=== PATIENT | male | born 1930 | race Caucasian/White ===

== ENCOUNTER 2016-07-14 15:14 | Inpatient (IN) | payer MEDICARE, OTHER ==
[~2016-07-14] VITALS: Ht 170.2 cm; Wt 92.6 kg
[~2016-07-14 15:14] MED LIST: ASPI81TA21 PO; CALC667C PO; FLM4 PO; INSU100I2 SC; INSU1INJ23 SC; LPT10 PO; WARF-246 PO
--- NOTE | 2016-07-14 16:49 | DIAGNOSTIC IMAGING REPORT ---
CHEST ONE VIEW PORTABLE CLINICAL HISTORY: Weakness COMPARISON STUDY: Chest radiograph August 01, 2014. FINDINGS: Several vascular stents are noted. There is no pneumothorax. Small left and sfwqt-er-tughvmri right pleural effusions are present. There is pulmonary vascular congestion. Mild left basilar opacity is present. Mild left midlung opacity is also present. IMPRESSION: 1. Small to moderate right and small left pleural effusions. 2. Pulmonary vascular congestion. 3. Left mid and lower lung opacities which could reflect an infectious process, atelectasis or asymmetric pulmonary edema. Radiographic follow up is recommended. Electronically signed by: Davide Fernandez M.D. 07/14/2016 4:48 PM Dictated Date/Time: 07/14/2016 4:46 PM
[2016-07-14 16:56] LABS: BASO % 0.1 %; BASO ABS # 0.01 K/uL (0-0.2); COMPLETE YES; EOS % 0.1 %; HEMATOCRIT 41.2 % (42-52); IG% 0.2 %; LYMPH % 6.2 %; MEAN CELL VOLUME 98.1 fL (80-100); MEAN CORPUSCULAR HEMOGLOBIN 33.6 pg (25-34); MEAN CORPUSCULAR HGB CONC 34.2 g/dl (32-36); MEAN PLATELET VOLUME 10.3 fL (7.4-10.4); MONO % 3.4 %; PLATELET COUNT 163 K/uL (130-400); WHITE BLOOD COUNT 16.08 K/uL (4.8-10.8)
[2016-07-14 17:06] LABS: INR 1.8 (0.9-1.1); PARTIAL THROMBOPLASTIN RATIO 1.3; PROTHROMBIN TIME (PATIENT) 19.7 SECONDS (9.0-12.0)
[2016-07-14 17:33] LABS: URINE APPEARANCE CLEAR (CLEAR); URINE BILIRUBIN NEG (NEG); URINE COLOR YELLOW; URINE NITRITE NEG (NEG); URINE PH 5.5 (4.5-7.5); URINE SPECIFIC GRAVITY 1.018 (1.000-1.030); UROBILINOGEN NEG (NEG)
[2016-07-14 17:36] LABS: MANUAL MICROSCOPIC REQUIRED? NO; REVIEW REQ? YES
[2016-07-14 17:49] LABS: BUN/CREATININE RATIO 11.2 (10-20); MAGNESIUM 2.8 mg/dl (1.8-2.4); POTASSIUM 4.5 mmol/L (3.5-5.1); THYROID STIMULATING HORMONE 0.017 uIu/ml (0.300-4.500)
[2016-07-14 17:50] LABS: CREATININE 5.3 mg/dl (0.60-1.40)
[2016-07-14] MEDS ORDERED: LEVAQUIN 750MG / 150ML D5W IV STA (18:08)
[2016-07-14] MEDS ORDERED: INSU100I SC ×3 (18:43)
[2016-07-14] MEDS ORDERED: HEPARIN SOD 5000 UNIT/0.5 ML CARP SQ SCH (18:45)
[2016-07-14] MEDS ORDERED: ONDANSETRON INJ 2 MG/ML 2 ML VIAL IV PRN (18:45)
[2016-07-14] MEDS ORDERED: SODIUM CHLORIDE 0.9% 1000ML 1,000 ML IV SCH (18:45)
[2016-07-14] MEDS ORDERED: ACETAMINOPHEN 325 MG TAB PO PRN (18:45)
[2016-07-14] MEDS ORDERED: ALBUTEROL 0.083% NEBU SOLN 3 ML VIAL INH PRN (19:00)
--- NOTE | 2016-07-14 19:00 | Progress Note ---
Progress Note Date of Service Jul 14, 2016. Progress Note Attending Addendum: The patient was seen and examined in ER Flu like symptoms for the last 3 days Tiredness ,cough with increase SOB No fever ,chills or rigors O/E Afebrile Hemodynamically stable Chest-crackles left base Heart -regular ,no murmur appreciated Abdomen-benign Extremities-trace edema bilaterally Labs and Imaging studies were reviewed Has Left lower lobe pneumonia with increase WCC No Hypotension Levaquin,Fluid,Nebs Agree with the Assessment and Plan. DR Minesh Cervantes
--- NOTE | 2016-07-14 19:15 | History and Physical ---
History & Physical Date & Time of Service: Jul 14, 2016 at 18:47 Chief Complaint: Cold,Flu Primary Care Physician: Karlos Burris M.D. (MEDICAL) History of Present Illness Source: patient This is an 86 y/o male with PMHx of ESRD on HD, Insulin-dependent DM 2, Afib on Coumadin, HTN, Dyslipidemia and other problems as outlined below who presents to the ED c/o flu-like sxs. Pt reports that 2 days ago he developed fatigue, chills, muscle aches and congestion. He has been taking OTC decongestants at home with minimal relief. Pt has ESRD on HD MWF. He currently lives at home with his partner. Pt denies fevers, chest pain, SOB, wheezing, abd pain, N/V, bowel or bladder issues, LE edema ,calf pain, lightheadedness/dizziness. In the ED, vitals are stable. Pt is afebrile with leukocytosis >16k. INR 1.8. CXR + Left mid and lower lobe pneumonia. Pt is stable and will be admitted for further evaluation and treatment. Past Medical/Surgical History Medical Problems: (1) Afib Status: Chronic (2) BPH (benign prostatic hyperplasia) Status: Chronic (3) Diabetes mellitus, type II Status: Chronic (4) Dyslipidemia Status: Chronic (5) ESRD (end stage renal disease) Status: Chronic (6) Hypertension Status: Chronic (7) Inguinal hernia Status: Chronic Surgical Problems: (1) H/O cataract removal with insertion of prosthetic lens Status: Resolved (2) S/P lumbar spinal fusion Status: Resolved Family History Diabetes mellitus Hypertension Social History Smoking Status: Former Smoker (20 pack year history; quit 1977) Alcohol Use: none Drug Use: none Marital Status: in relationship ([facility]) Housing status: lives with significant other Occupational Status: retired Multi-Drug Resistant Organisms History of MDRO: No Allergies Coded Allergies: Hydralazine (Verified Allergy, Unknown, DOESN'T FEEL WELL, 07/14/16) Sulfa Antibiotics (Verified Allergy, Unknown, `, 07/14/16) Benazepril (Verified Adverse Reaction, Unknown, DIZZINESS, 07/14/16) Home Medications Scheduled Aspirin Enteric Coated (Ecotrin Or Generic), 81 MG PO DAILY Atorvastatin (Atorvastatin Calcium), 10 MG PO QPM Calcium Acetate (Phosphate Bin (Phoslo 667 Mg), 667 MG PO TIDM Insulin Isophane (Human) (Humulin N Kwikpen), 15 UNITS SC QAM Insulin Lispro (Human) (Humalog), 4 UNITS SC QDB Insulin Lispro (Human) (Humalog), 4 UNITS SC QDL Insulin Lispro (Human) (Humalog), 5 UNITS SC QDD Warfarin Sodium (Warfarin Sodium), 2.5 MG PO DAILY Review of Systems Constitutional: + chills, + fatigue, + weakness, No fever, No sweats Eyes: No worsening of vision ENT: + nasal symptoms, No hearing loss, No sore throat Respiratory: + sputum (mild), No cough, No shortness of breath Cardiovascular: No chest pain, No claudication, No edema, No palpitations Abdomen: No constipation, No diarrhea, No nausea, No pain, No vomiting Musculoskeletal: No calf pain, No swelling Genitourinary - Male: No dysuria Neurologic: No weakness Psychiatric: No depression symptoms Endocrine: + fatigue Hematologic / Lymphatic: No abnormal bleeding/bruising Integumentary: No new/changing skin lesions Physical Exam Vital Signs Date Time Temp Pulse Resp B/P Pulse Ox O2 Delivery O2 Flow Rate FiO2 07/14/16 18:04 80 07/14/16 17:39 90 18 166/61 95 Room Air 07/14/16 16:48 99 Room Air 07/14/16 15:33 36.9 90 20 184/64 99 Room Air General Appearance: WD/WN, no apparent distress, + pertinent finding (Pt is sitting on edge of bed with family at bedside ) Head: normocephalic, atraumatic Eyes: normal inspection ENT: hearing grossly normal Neck: supple Respiratory/Chest: chest non-tender, no respiratory distress, no accessory muscle use, + pertinent finding (crackles to left base; no wheezing noted) Cardiovascular: regular rate, rhythm, + systolic murmur (III/) Abdomen/GI: normal bowel sounds, non tender, soft Back: normal inspection Extremities/Musculoskelatal: normal inspection, no calf tenderness, + pedal edema (trace bilat) Neurologic/Psych: alert, normal mood/affect, oriented x 3 Skin: normal color, warm/dry Diagnostics Laboratory Results Results Past 24 Hours Test 07/14/16 16:35 07/14/16 16:54 07/14/16 17:00 Range/Units White Blood Count 16.08 4.8-10.8 K/uL Red Blood Count 4.20 4.7-6.1 M/uL Hemoglobin 14.1 14.0-18.0 g/dL Hematocrit 41.2 42-52 % Mean Corpuscular Volume 98.1 80-100 fL Mean Corpuscular Hemoglobin 33.6 25-34 pg Mean Corpuscular Hemoglobin Concent 34.2 32-36 g/dl Platelet Count 163 130-400 K/uL Mean Platelet Volume 10.3 7.4-10.4 fL Neutrophils (%) (Auto) 90.0 % Lymphocytes (%) (Auto) 6.2 % Monocytes (%) (Auto) 3.4 % Eosinophils (%) (Auto) 0.1 % Basophils (%) (Auto) 0.1 % Neutrophils # (Auto) 14.47 1.4-6.5 K/uL Lymphocytes # (Auto) 1.00 1.2-3.4 K/uL Monocytes # (Auto) 0.55 0.11-0.59 K/uL Eosinophils # (Auto) 0.01 0-0.5 K/uL Basophils # (Auto) 0.01 0-0.2 K/uL RDW Standard Deviation 47.1 36.4-46.3 fL RDW Coefficient of Variation 13.2 11.5-14.5 % Immature Granulocyte % (Auto) 0.2 % Immature Granulocyte # (Auto) 0.04 0.00-0.02 K/uL Prothrombin Time 19.7 9.0-12.0 SECONDS Prothromb Time International Ratio 1.8 0.9-1.1 Activated Partial Thromboplast Time 33.1 21.0-31.0 SECONDS Partial Thromboplastin Ratio 1.3 Sodium Level 135 136-145 mmol/L Potassium Level 4.5 3.5-5.1 mmol/L Chloride Level 95 98-107 mmol/L Carbon Dioxide Level 29 21-32 mmol/L Anion Gap 11.0 3-11 mmol/L Blood Urea Nitrogen 59 7-18 mg/dl Creatinine 5.30 0.60-1.40 mg/dl Est Creatinine Clear Calc Drug Dose 10.6 ml/min Estimated GFR () 10.3 Estimated GFR (Non- 8.9 BUN/Creatinine Ratio 11.2 10-20 Random Glucose 208 70-99 mg/dl Calcium Level 9.0 8.5-10.1 mg/dl Magnesium Level 2.8 1.8-2.4 mg/dl Total Bilirubin 0.6 0.2-1 mg/dl Direct Bilirubin 0.2 0-0.2 mg/dl Aspartate Amino Transf (AST/SGOT) 13 15-37 U/L Alanine Aminotransferase (ALT/SGPT) 20 12-78 U/L Alkaline Phosphatase 54 45-117 U/L Total Protein 8.1 6.4-8.2 gm/dl Albumin 3.7 3.4-5.0 gm/dl Lipase 152 73-393 U/L Thyroid Stimulating Hormone (TSH) 0.017 0.300-4.500 uIu/ml Influenza Type A Antigen Neg for Influ A NEG Influenza Type B Antigen Neg for Influ B NEG Urine Color YELLOW Urine Appearance CLEAR CLEAR Urine pH 5.5 4.5-7.5 Urine Specific [place] 1.018 1.000-1.030 Urine Protein 1+ NEG Urine Glucose (UA) 2+ NEG Urine Ketones NEG NEG Urine Occult Blood 1+ NEG Urine Nitrite NEG NEG Urine Bilirubin NEG NEG Urine Urobilinogen NEG NEG Urine Leukocyte Esterase NEG NEG Urine WBC (Auto) 1-5 0-5 /hpf Urine RBC (Auto) 5-10 0-4 /hpf Urine Hyaline Casts (Auto) 1-5 0-5 /lpf Urine Epithelial Cells (Auto) 10-20 0-5 /lpf Urine Bacteria (Auto) NEG NEG Urine Yeast (Auto) NONE PRSENT Microbiology Results 07/14/16 Blood Culture, Received Pending 07/14/16 Blood Culture, Received Pending Diagnostic Radiology CXR IMPRESSION: 1. Small to moderate right and small left pleural effusions. 2. Pulmonary vascular congestion. 3. Left mid and lower lung opacities which could reflect an infectious process, atelectasis or asymmetric pulmonary edema. Radiographic follow up is recommended. EKG EKG: Aflutter with variable AV block; when compared with EKG from 07/14/14 Aflutter has replaced Afib and T wave inversion is no longer evident in anterolateral leads Impression Assessment and Plan LEFT-SIDED PNEUMONIA pt presents with flu-like sxs -admit to med/surg -pt is afebrile with leukocytosis >16k; saturating well on room air -CXR + left mid and lower lobe pneumonia with small to mod R and small L pleural effusion -sputum and blood cx-pending -start duonebs and Levaquin -monitor ESRD ON HD -HD MWF -consult nephro, Balta[facility] Cartwright for dialysis tmrw INSULIN-DEPENDENT DM 2 -A1C 7.0 -diabetic diet -ISS while in hospital -monitor BSG AC HS ATRIAL FIBRILLATION -EKG: rate controlled aflutter -INR subtherapeutic at 1.8; cont to monitor daily -cont Coumadin -monitor HTN -BP stable -not on antihypertensives at home -monitor DYSLIPIDEMIA -cont statin DVT PROPHYLAXIS -Coumadin CODE STATUS -DNR per discussion with patient upon admission DISPO Pt seen in collaboration with Dr. Cervantes. Please see his addendum for further details. Thanks! Attending Addendum: The patient was seen and examined in ER Flu like symptoms for the last 3 days Tiredness ,cough with increase SOB No fever ,chills or rigors O/E Afebrile Hemodynamically stable Chest-crackles left base Heart -regular ,no murmur appreciated Abdomen-benign Extremities-trace edema bilaterally Labs and Imaging studies were reviewed Has Left lower lobe pneumonia with increase WCC No Hypotension Levaquin,Fluid,Nebs Agree with the Assessment and Plan. DR Minesh Cervantes VTE Prophylaxis VTE Risk Assessment Done? Y/N: Yes Risk Level: Moderate
[2016-07-14 20:25] VITALS: BP 179/64; PULSE 79; TEMP 37.2; O2SAT 95; Ht 170.2 cm; Wt 92.6 kg
[2016-07-14] MEDS ORDERED: ATORVASTATIN 10 MG TAB PO SCH (21:00)
[2016-07-14] MEDS: ALBUT/IPRATROP 3MG/0.5MG NEB 3 ML VIAL INH SCH (21:13)
[2016-07-14 21:15] VITALS: PULSE 79; O2SAT 92
[2016-07-14] MEDS ORDERED: GLUCOSE 10 TABS/TUBE PO PRN (21:45)
[2016-07-14] MEDS ORDERED: GLUCAGON FOR INJ 1 MG VIAL SQ PRN (21:45)
[2016-07-14] MEDS ORDERED: GLUCOSE 40% GEL 15 GM TUBE PO PRN (21:45)
[2016-07-14] MEDS ORDERED: DEXTROSE 50% 50 ML SYR IV PRN (21:45)
--- NOTE | 2016-07-14 22:42 | EMERGENCY ROOM VISIT NOTE ---
History Report prepared by Radha: Tonya Brenner Under the Supervision of: Dr. Tera Obando M.D. First contact with patient: 16:05 Chief Complaint: FLU LIKE SX Stated Complaint: COLD,FLU History of Present Illness The patient is a 86 year old male who presents to the Emergency Room with complaints of worsening flu like symptoms beginning 3 days prior to arrival. The patient states that he feels very fatigue. He also notes chills, muscle aches and congestion with a small amount of sputum. The patient states that he is currently on dialysis. Pt denies LOC, headache, fevers, diaphoresis, visual changes, neck pain, chest pain, breathing difficulties, nausea, vomiting, abdominal pain, back pain, melena, hematochezia, urinary symptoms, numbness, weakness, lymphadenopathy, rash, or other complaints. 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 Review of Systems See HPI for pertinent positives and negatives. A total of ten systems were reviewed and were otherwise negative. Past Medical & Surgical Medical Problems: (1) Afib (2) BPH (benign prostatic hyperplasia) (3) Diabetes mellitus, type II (4) Dyslipidemia (5) ESRD (end stage renal disease) (6) Hypertension (7) Inguinal hernia Surgical Problems: (1) H/O cataract removal with insertion of prosthetic lens (2) S/P lumbar spinal fusion Family History Diabetes mellitus Hypertension Social History Smoking Status: Never Smoker Alcohol Use: none Marital Status: in relationship Housing Status: lives with significant other Occupation Status: retired Current/Historical Medications Scheduled Aspirin Enteric Coated (Ecotrin Or Generic), 81 MG PO DAILY Atorvastatin (Atorvastatin Calcium), 10 MG PO QPM Calcium Acetate (Phosphate Bin (Phoslo 667 Mg), 667 MG PO TIDM Insulin Isophane (Human) (Humulin N Kwikpen), 15 UNITS SC QAM Insulin Lispro (Human) (Humalog), 4 UNITS SC QDB Insulin Lispro (Human) (Humalog), 4 UNITS SC QDL Insulin Lispro (Human) (Humalog), 5 UNITS SC QDD Warfarin Sodium (Warfarin Sodium), 2.5 MG PO DAILY Allergies Coded Allergies: Hydralazine (Verified Allergy, Unknown, DOESN'T FEEL WELL, 07/14/16) Sulfa Antibiotics (Verified Allergy, Unknown, `, 07/14/16) Benazepril (Verified Adverse Reaction, Unknown, DIZZINESS, 07/14/16) Physical Exam Vital Signs Date Time Temp Pulse Resp B/P Pulse Ox O2 Delivery O2 Flow Rate FiO2 07/14/16 18:04 80 07/14/16 17:39 90 18 166/61 95 Room Air 07/14/16 16:48 99 Room Air 07/14/16 15:33 36.9 90 20 184/64 99 Room Air Physical Exam GENERAL: Awake, alert, tired appearing, in no distress HENT: Normocephalic, atraumatic. Oropharynx unremarkable. EYES: Normal conjunctiva. Sclera non-icteric. NECK: Supple. No nuchal rigidity. FROM. No JVD. RESPIRATORY: Clear to auscultation. CARDIAC: Regular rate, normal rhythm. Systolic ejection murmur. Extremities warm and well perfused. Pulses equal. ABDOMEN: Soft, non-distended. No tenderness to palpation. No rebound or guarding. No masses. RECTAL: Deferred. MUSCULOSKELETAL: Chest examination reveals no tenderness. The back is symmetrical on inspection without obvious abnormality. There is no CVA tenderness to palpation. No joint edema. Fistula present in upper right extremity. LOWER EXTREMITIES: Calves are equal size bilaterally and non-tender. No edema. No discoloration. NEURO: Normal sensorium. No sensory or motor deficits noted. SKIN: No rash or jaundice noted. Medical Decision & Procedures ER Provider Diagnostic Interpretation: X-ray: Per my interpretation, radiologist review. CHEST ONE VIEW PORTABLE CLINICAL HISTORY: Weakness COMPARISON STUDY: Chest radiograph August 01, 2014. FINDINGS: Several vascular stents are noted. There is no pneumothorax. Small left and ajsvl-ll-[id number] right pleural effusions are present. There is pulmonary vascular congestion. Mild left basilar opacity is present. Mild left midlung opacity is also present. IMPRESSION: 1. Small to moderate right and small left pleural effusions. 2. Pulmonary vascular congestion. 3. Left mid and lower lung opacities which could reflect an infectious process, atelectasis or asymmetric pulmonary edema. Radiographic follow up is recommended. Electronically signed by: Davide Fernandez M.D. 07/14/2016 4:48 PM Dictated Date/Time: 07/14/2016 4:46 PM Laboratory Results 07/14/16 16:35 Red Blood Count 4.20, Mean Corpuscular Volume 98.1, Mean Corpuscular Hemoglobin 33.6, Mean Corpuscular Hemoglobin Concent 34.2, Mean Platelet Volume 10.3, Neutrophils (%) (Auto) 90.0, Lymphocytes (%) (Auto) 6.2, Monocytes (%) (Auto) 3.4, Eosinophils (%) (Auto) 0.1, Basophils (%) (Auto) 0.1, Neutrophils # (Auto) 14.47, Lymphocytes # (Auto) 1.00, Monocytes # (Auto) 0.55, Eosinophils # (Auto) 0.01, Basophils # (Auto) 0.01 07/14/16 16:35 Test 07/14/16 16:35 07/14/16 16:54 07/14/16 17:00 White Blood Count 16.08 K/uL (4.8-10.8) Red Blood Count 4.20 M/uL (4.7-6.1) Hemoglobin 14.1 g/dL (14.0-18.0) Hematocrit 41.2 % (42-52) Mean Corpuscular Volume 98.1 fL (80-100) Mean Corpuscular Hemoglobin 33.6 pg (25-34) Mean Corpuscular Hemoglobin Concent 34.2 g/dl (32-36) Platelet Count 163 K/uL (130-400) Mean Platelet Volume 10.3 fL (7.4-10.4) Neutrophils (%) (Auto) 90.0 % Lymphocytes (%) (Auto) 6.2 % Monocytes (%) (Auto) 3.4 % Eosinophils (%) (Auto) 0.1 % Basophils (%) (Auto) 0.1 % Neutrophils # (Auto) 14.47 K/uL (1.4-6.5) Lymphocytes # (Auto) 1.00 K/uL (1.2-3.4) Monocytes # (Auto) 0.55 K/uL (0.11-0.59) Eosinophils # (Auto) 0.01 K/uL (0-0.5) Basophils # (Auto) 0.01 K/uL (0-0.2) RDW Standard Deviation 47.1 fL (36.4-46.3) RDW Coefficient of Variation 13.2 % (11.5-14.5) Immature Granulocyte % (Auto) 0.2 % Immature Granulocyte # (Auto) 0.04 K/uL (0.00-0.02) Prothrombin Time 19.7 SECONDS (9.0-12.0) Prothromb Time International Ratio 1.8 (0.9-1.1) Activated Partial Thromboplast Time 33.1 SECONDS (21.0-31.0) Partial Thromboplastin Ratio 1.3 Anion Gap 11.0 mmol/L (3-11) Est Creatinine Clear Calc Drug Dose 10.6 ml/min Estimated GFR () 10.3 Estimated GFR (Non- 8.9 BUN/Creatinine Ratio 11.2 (10-20) Calcium Level 9.0 mg/dl (8.5-10.1) Magnesium Level 2.8 mg/dl (1.8-2.4) Total Bilirubin 0.6 mg/dl (0.2-1) Direct Bilirubin 0.2 mg/dl (0-0.2) Aspartate Amino Transf (AST/SGOT) 13 U/L (15-37) Alanine Aminotransferase (ALT/SGPT) 20 U/L (12-78) Alkaline Phosphatase 54 U/L (45-117) Total Protein 8.1 gm/dl (6.4-8.2) Albumin 3.7 gm/dl (3.4-5.0) Lipase 152 U/L (73-393) Thyroid Stimulating Hormone (TSH) 0.017 uIu/ml (0.300-4.500) Influenza Type A Antigen Neg for Influ A (NEG) Influenza Type B Antigen Neg for Influ B (NEG) Urine Color YELLOW Urine Appearance CLEAR (CLEAR) Urine pH 5.5 (4.5-7.5) Urine Specific [place] 1.018 (1.000-1.030) Urine Protein 1+ (NEG) Urine Glucose (UA) 2+ (NEG) Urine Ketones NEG (NEG) Urine Occult Blood 1+ (NEG) Urine Nitrite NEG (NEG) Urine Bilirubin NEG (NEG) Urine Urobilinogen NEG (NEG) Urine Leukocyte Esterase NEG (NEG) Urine WBC (Auto) 1-5 /hpf (0-5) Urine RBC (Auto) 5-10 /hpf (0-4) Urine Hyaline Casts (Auto) 1-5 /lpf (0-5) Urine Epithelial Cells (Auto) 10-20 /lpf (0-5) Urine Bacteria (Auto) NEG (NEG) Urine Yeast (Auto) (NONE PRSENT) Laboratory results reviewed by me Medications Administered Medications (Trade) Dose Ordered Sig/Gypsy Route Start Time Stop Time Status Last Admin Dose Admin Levofloxacin (Levaquin / D5W) 750 mg NOW STAT IV 07/14/16 18:08 07/14/16 18:09 DC 07/14/16 18:12 750 MG ECG Indication: other (flu like symptoms) Rate (beats per minute): 85 Rhythm: atrial flutter (with variable block) Findings: Q waves (Anterior), no acute ischemic change ED Course 162: The patient was evaluated in room B8. A complete history and physical exam was performed. 1807: Levaquin / D5W 750 mg IV. 1810: I reevaluated the patient and discussed test results. He is worried about going home due to weakness. 1813: Discussed the patient's case with LETA Maher. The patient will be evaluated for further treatment and disposition. Medical Decision Triage Nursing notes reviewed. The patient's presentation and history were concerning for flu like symptoms. Etiologies such as pneumonia, influenza, viral syndrome, COPD, reactive airway disease, CHF, cardiac ischemia, pulmonary embolism, pneumothorax, musculoskeletal, infections, gastrointestinal, as well as others were entertained. The patient was evaluated. He was mildly ill but nontoxic. Chest x-ray performed was concerning for pneumonia. The patient has a leukocytosis of 16, 000 on CBC. INR was elevated at 1.8. Creatinine is elevated with his chronic renal insufficiency. Flu testing was negative. TSH was mildly low concerning for hyperthyroidism. The patient was treated with IV Levaquin. He has been generally weak and worsening. Family and patient are both very concerned about him going home. Consultation was made with internal medicine. The patient was evaluated in the Emergency Room for further treatment. ThE chart was completed utilizing [employer] Speech voice recognition software. Grammatical errors, random word insertions, pronoun errors, and incomplete sentences are an occasional consequence of this system due to software limitations, ambient noise, and hardware issues. Any formal questions or concerns about the content, text, or information contained within the body of this dictation should be directly addressed to the physician for clarification. Consults Time Called: 1811 Consulting Physician: LETA Maher Returned Call: 1813 Discussed the patient's case. The patient will be evaluated for further treatment and disposition. Impression Primary Impression: Pneumonia Additional Impression: Weakness Scribe Attestation The scribe's documentation has been prepared under my direction and personally reviewed by me in its entirety. I confirm that the note above accurately reflects all work, treatment, procedures, and medical decision making performed by me. Departure Information Dispostion Being Evaluated By Hospitalist Referrals Karlos Burris M.D. (MEDICAL) (PCP) Problem Qualifiers
[2016-07-14 23:00] VITALS: BP 160/66; PULSE 84; TEMP 36.8; O2SAT 93
[2016-07-14] MEDS: ATORVASTATIN 10 MG TAB PO SCH (23:06)
[2016-07-14] MEDS: INSULIN ASPART 100 UNITS/ML 3 ML PEN SC SCH (23:09)
[2016-07-15] VITALS (26 sets, daily range): BP systolic 129–189; BP diastolic 53–72; PULSE 20–103; TEMP 36.6–37.5; O2SAT 88–98
[2016-07-15] MEDS ORDERED: LEVOFLOXACIN CONSULT ACTIVE PRN (05:30)
[2016-07-15 06:42] LABS: HEMATOCRIT 39.5 % (42-52); MEAN CORPUSCULAR HGB CONC 33.7 g/dl (32-36); MEAN PLATELET VOLUME 10.3 fL (7.4-10.4); PLATELET COUNT 170 K/uL (130-400); RED BLOOD COUNT 4.03 M/uL (4.7-6.1)
[2016-07-15 06:53] LABS: INR 1.8 (0.9-1.1); PROTHROMBIN TIME (PATIENT) 20.2 SECONDS (9.0-12.0)
[2016-07-15 07:27] LABS: BUN/CREATININE RATIO 12.2 (10-20); CALCIUM 8.9 mg/dl (8.5-10.1); CREATININE 5.4 mg/dl (0.60-1.40); MAGNESIUM 2.7 mg/dl (1.8-2.4); POTASSIUM 3.9 mmol/L (3.5-5.1)
[2016-07-15] MEDS: ALBUT/IPRATROP 3MG/0.5MG NEB 3 ML VIAL INH SCH ×4 (07:36→20:29)
[2016-07-15] MEDS ORDERED: CALCIUM ACETATE 667MG GELCAP PO SCH (08:00)
[2016-07-15] MEDS: CALCIUM ACETATE 667MG GELCAP PO SCH ×3 (08:28→17:54)
[2016-07-15] MEDS: ASPIRIN 81 MG ECTAB PO SCH (08:29)
[2016-07-15] MEDS: INSULIN ASPART 100 UNITS/ML 3 ML PEN SC SCH ×4 (08:33→21:43)
[2016-07-15] MEDS ORDERED: ASPIRIN 81 MG ECTAB PO SCH (09:00)
[2016-07-15] MEDS ORDERED: WARFARIN SOD 5 MG TAB PO SCH (09:00)
[2016-07-15] MEDS ORDERED: HEPARIN SOD (PORCINE) 1000 UNIT/ML 10 ML VIAL IV SCH (09:30)
[2016-07-15] MEDS: HEPARIN SOD (PORCINE) 1000 UNIT/ML 10 ML VIAL IV SCH ×3 (09:30→11:30)
[2016-07-15] MEDS: WARFARIN SOD 2.5 MG TAB PO SCH (15:43)
--- NOTE | 2016-07-15 16:19 | Progress Note ---
Internal Med Progress Note Date of Service: Jul 15, 2016. Provider Documentation: SUBJECTIVE: The patient was seen and examined Complains of dry cough Otherwise feels better OBJECTIVE: Vital Signs-as noted below Exam: General-No distress Eyes-normal ENT-normal Neck-Supple Lungs-Coarse crackles mainly at the left base Heart-Regular.no murmur Abdomen-Benign,no masses,bowel sound present Extremities-No edema Neuro-AAOx3 Lab data as noted below. ASSESSMENT & PLAN: LEFT LOWER LOBE PNEUMONIA pt presents with flu-like symptoms for 3 days prior to admission no sepsis but WCC increased to 16K -CXR + left mid and lower lobe pneumonia with small to mod R and small L pleural effusion -started on IV Levaquin -sputum and blood cx-pending -nebs for cough INSULIN-DEPENDENT DM 2 -A1C 7.0 -diabetic diet -ISS while in hospital -monitor BSG AC HS -blood sugar is maintained ESRD ON HD -HD MWF -consult nephDr chow Mainali for dialysis tmrw -has had dialysis today -appreciate Nephrology input ATRIAL FIBRILLATION -EKG: rate controlled aflutter -INR subtherapeutic at 1.8; cont to monitor daily -cont Coumadin same dose HTN -BP stable -not on antihypertensives at home -running on the higher side DYSLIPIDEMIA -cont statin DVT PROPHYLAXIS -Coumadin CODE STATUS -DNR per discussion with patient upon admission DISPO Likely home in a day or two Vital Signs: Date Time Temp Pulse Resp B/P Pulse Ox O2 Delivery O2 Flow Rate FiO2 07/15/16 16:01 82 16 91 Room Air 07/15/16 15:13 36.6 96 20 189/62 94 Room Air 07/15/16 13:38 36.6 103 18 160/58 98 Room Air 07/15/16 13:15 36.8 20 136/71 07/15/16 13:00 76 129/62 07/15/16 12:45 73 133/61 07/15/16 12:30 73 145/59 07/15/16 12:15 71 133/60 07/15/16 12:00 75 141/64 07/15/16 11:45 72 138/62 07/15/16 11:30 71 146/68 07/15/16 11:15 74 141/72 07/15/16 11:00 72 140/63 07/15/16 10:45 68 141/66 07/15/16 10:30 77 138/68 07/15/16 10:15 76 142/67 07/15/16 10:00 74 137/61 07/15/16 09:45 74 141/62 07/15/16 09:40 92 Room Air 07/15/16 09:30 37.5 76 142/68 07/15/16 07:56 36.7 88 20 169/70 92 Room Air 07/15/16 07:36 78 16 92 Room Air 07/15/16 07:10 Room Air 07/15/16 00:00 Room Air 07/14/16 23:00 36.8 84 20 160/66 93 Room Air 07/14/16 21:15 79 16 92 Room Air 07/14/16 20:25 37.2 79 18 179/64 95 Room Air 07/14/16 20:13 78 18 141/53 94 Room Air 07/14/16 18:04 80 07/14/16 17:39 90 18 166/61 95 Room Air 07/14/16 16:48 99 Room Air Lab Results: Results Past 24 Hours Test 07/14/16 16:35 07/14/16 16:54 07/14/16 17:00 07/14/16 21:01 Range/Units White Blood Count 16.08 4.8-10.8 K/uL Red Blood Count 4.20 4.7-6.1 M/uL Hemoglobin 14.1 14.0-18.0 g/dL Hematocrit 41.2 42-52 % Mean Corpuscular Volume 98.1 80-100 fL Mean Corpuscular Hemoglobin 33.6 25-34 pg Mean Corpuscular Hemoglobin Concent 34.2 32-36 g/dl Platelet Count 163 130-400 K/uL Mean Platelet Volume 10.3 7.4-10.4 fL Neutrophils (%) (Auto) 90.0 % Lymphocytes (%) (Auto) 6.2 % Monocytes (%) (Auto) 3.4 % Eosinophils (%) (Auto) 0.1 % Basophils (%) (Auto) 0.1 % Neutrophils # (Auto) 14.47 1.4-6.5 K/uL Lymphocytes # (Auto) 1.00 1.2-3.4 K/uL Monocytes # (Auto) 0.55 0.11-0.59 K/uL Eosinophils # (Auto) 0.01 0-0.5 K/uL Basophils # (Auto) 0.01 0-0.2 K/uL RDW Standard Deviation 47.1 36.4-46.3 fL RDW Coefficient of Variation 13.2 11.5-14.5 % Immature Granulocyte % (Auto) 0.2 % Immature Granulocyte # (Auto) 0.04 0.00-0.02 K/uL Prothrombin Time 19.7 9.0-12.0 SECONDS Prothromb Time International Ratio 1.8 0.9-1.1 Activated Partial Thromboplast Time 33.1 21.0-31.0 SECONDS Partial Thromboplastin Ratio 1.3 Sodium Level 135 136-145 mmol/L Potassium Level 4.5 3.5-5.1 mmol/L Chloride Level 95 98-107 mmol/L Carbon Dioxide Level 29 21-32 mmol/L Anion Gap 11.0 3-11 mmol/L Blood Urea Nitrogen 59 7-18 mg/dl Creatinine 5.30 0.60-1.40 mg/dl Est Creatinine Clear Calc Drug Dose 10.6 ml/min Estimated GFR () 10.3 Estimated GFR (Non- 8.9 BUN/Creatinine Ratio 11.2 10-20 Random Glucose 208 70-99 mg/dl Calcium Level 9.0 8.5-10.1 mg/dl Magnesium Level 2.8 1.8-2.4 mg/dl Total Bilirubin 0.6 0.2-1 mg/dl Direct Bilirubin 0.2 0-0.2 mg/dl Aspartate Amino Transf (AST/SGOT) 13 15-37 U/L Alanine Aminotransferase (ALT/SGPT) 20 12-78 U/L Alkaline Phosphatase 54 45-117 U/L Total Protein 8.1 6.4-8.2 gm/dl Albumin 3.7 3.4-5.0 gm/dl Lipase 152 73-393 U/L Thyroid Stimulating Hormone (TSH) 0.017 0.300-4.500 uIu/ml Influenza Type A Antigen Neg for Influ A NEG Influenza Type B Antigen Neg for Influ B NEG Urine Color YELLOW Urine Appearance CLEAR CLEAR Urine pH 5.5 4.5-7.5 Urine Specific [place] 1.018 1.000-1.030 Urine Protein 1+ NEG Urine Glucose (UA) 2+ NEG Urine Ketones NEG NEG Urine Occult Blood 1+ NEG Urine Nitrite NEG NEG Urine Bilirubin NEG NEG Urine Urobilinogen NEG NEG Urine Leukocyte Esterase NEG NEG Urine WBC (Auto) 1-5 0-5 /hpf Urine RBC (Auto) 5-10 0-4 /hpf Urine Hyaline Casts (Auto) 1-5 0-5 /lpf Urine Epithelial Cells (Auto) 10-20 0-5 /lpf Urine Bacteria (Auto) NEG NEG Urine Yeast (Auto) NONE PRSENT Bedside Glucose 204 70-99 mg/dl Test 07/15/16 06:00 07/15/16 08:13 07/15/16 10:04 07/15/16 13:19 Range/Units White Blood Count 14.60 4.8-10.8 K/uL Red Blood Count 4.03 4.7-6.1 M/uL Hemoglobin 13.3 14.0-18.0 g/dL Hematocrit 39.5 42-52 % Mean Corpuscular Volume 98.0 80-100 fL Mean Corpuscular Hemoglobin 33.0 25-34 pg Mean Corpuscular Hemoglobin Concent 33.7 32-36 g/dl RDW Standard Deviation 47.9 36.4-46.3 fL RDW Coefficient of Variation 13.3 11.5-14.5 % Platelet Count 170 130-400 K/uL Mean Platelet Volume 10.3 7.4-10.4 fL Prothrombin Time 20.2 9.0-12.0 SECONDS Prothromb Time International Ratio 1.8 0.9-1.1 Sodium Level 132 136-145 mmol/L Potassium Level 3.9 3.5-5.1 mmol/L Chloride Level 93 98-107 mmol/L Carbon Dioxide Level 29 21-32 mmol/L Anion Gap 10.0 3-11 mmol/L Blood Urea Nitrogen 67 7-18 mg/dl Creatinine 5.40 0.60-1.40 mg/dl Est Creatinine Clear Calc Drug Dose 10.4 ml/min Estimated GFR () 10.1 Estimated GFR (Non- 8.7 BUN/Creatinine Ratio 12.2 10-20 Random Glucose 172 70-99 mg/dl Calcium Level 8.9 8.5-10.1 mg/dl Magnesium Level 2.7 1.8-2.4 mg/dl Bedside Glucose 170 155 70-99 mg/dl Microbiology Results 07/14/16 Blood Culture, Received Pending 07/14/16 Blood Culture, Received Pending
[2016-07-15 17:01] LABS: HEPATITIS B AB NEG
[2016-07-15] MEDS ORDERED: MAGNESIUM HYDROXIDE SUSP 30 ML UDC PO ONE (18:15)
--- NOTE | 2016-07-15 19:58 | Nephrology Consultation ---
Nephrology Consultation Date of Consultation: Jul 15, 2016. Attending Physician: Dr Cervantes Requesting Physician: Dr Marcelo Reason for Consultation: ESRD History of Present Illness 86 year old male w/ ESRD on MWF HD, a fib on coumadin, DM, HTN admitted for tx of LLL pna after presenting with flu like sx of chills, chest/sinus congestion. Not hypoxic, febrile, or hypotensive. His WBC was 16K; K 4.5. Blood cultures are pending. He is being treated w/ duonebs and levaquin. At my orders, he received routine dialysis today and had an uneventful tx w/ 3L UF. Past Medical/Surgical History Medical Problems: (1) Pneumonia Status: Acute (2) Weakness Status: Acute -as per HPI -HTN -remote 20 pk yr hx tobacco abuse -s/p lumbar- fusion Family History Diabetes mellitus Hypertension Social History Smoking Status: Never Smoker Alcohol Use: none Drug Use: none Marital Status: in relationship Housing Status: lives with significant other Occupation Status: retired Allergies Coded Allergies: Hydralazine (Verified Allergy, Unknown, DOESN'T FEEL WELL, 07/14/16) Sulfa Antibiotics (Verified Allergy, Unknown, `, 07/14/16) Benazepril (Verified Adverse Reaction, Unknown, DIZZINESS, 07/14/16) Medications Current Inpatient Medications Medications (Trade) Dose Ordered Sig/Gypsy Route Start Time Stop Time Status Last Admin Dose Admin Acetaminophen (Tylenol Tab) 650 mg Q4H PRN PO 07/14/16 18:45 08/13/16 18:44 Ondansetron HCl 4 mg 4 mg Q6H PRN IV 07/14/16 18:45 08/13/16 18:44 Levofloxacin/Prmx (Levaquin / D5W/ Premixed D5W) 100 ml @ 100 mls/hr Q48H IV 07/16/16 18:00 07/20/16 23:59 Albuterol/ Ipratropium (Duoneb) 3 ml QIDR INH 07/14/16 20:00 08/13/16 19:59 07/15/16 16:00 3 ML Aspirin (Ecotrin Tab) 81 mg DAILY PO 07/15/16 09:00 08/14/16 08:59 07/15/16 08:29 81 MG Atorvastatin Calcium (Lipitor Tab) 10 mg QPM PO 07/14/16 21:00 08/13/16 20:59 07/14/16 23:06 10 MG Calcium Acetate (Phoslo Cap) 667 mg TIDM PO 07/15/16 08:00 08/14/16 07:59 07/15/16 17:54 667 MG Warfarin Sodium (Coumadin Tab) 2.5 mg DAILY@1600 PO 07/15/16 16:00 08/14/16 15:59 07/15/16 15:43 2.5 MG Insulin Aspart (novoLOG ASPART) SLIDING SCALE G... ACHS SC 07/14/16 21:00 08/13/16 20:59 07/15/16 18:03 7 UNITS Albuterol Sulfate (Ventolin 0.083% 2.5MG/3ML Neb) 2.5 mg Q6R PRN INH 07/14/16 19:00 08/13/16 18:59 Glucose (Glucose 40% Gel) 15-30 GRAMS 15 GRAMS... UD PRN PO 07/14/16 21:45 08/13/16 21:44 Glucose (Glucose Chew Tab) 4-8 Tablets 4 Tabl... UD PRN PO 07/14/16 21:45 08/13/16 21:44 Dextrose (Dextrose 50% 50ML Syringe) 25-50ML OF 50% DW IV FOR... UD PRN IV 07/14/16 21:45 08/13/16 21:44 Glucagon (Glucagon Inj) 1 mg UD PRN SQ 07/14/16 21:45 08/13/16 21:44 Levofloxacin (Consult) 1 ea UD PRN N/A 07/15/16 05:30 08/14/16 05:29 Insulin Human NPH (novoLIN-N NPH) 15 units QAM SC 07/16/16 09:00 08/15/16 08:59 Home Meds and Scripts Medications Dose Route/Sig Max Daily Dose Days Date Category Dose Instructions Humalog (Insulin Lispro (Human)) 100 Unit/Ml Inj 5 Units SC QDD 07/14/16 Reported Humalog (Insulin Lispro (Human)) 100 Unit/Ml Inj 4 Units SC QDL 07/14/16 Reported Humalog (Insulin Lispro (Human)) 100 Unit/Ml Inj 4 Units SC QDB 07/14/16 Reported Warfarin Sodium 5 Mg Tab 2.5 Mg PO DAILY 02/16/15 Reported TAKE HALF A TABLET (2.5 MG) EVERY DAY OR OTHERWISE DIRECTED TO TAKE BY ANTICOAGULATION CLINIC/MD. Humulin N Kwikpen (Insulin Isophane (Human)) 100 Unit/Ml Inj 15 Units SC QAM 02/16/15 Reported Phoslo 667 Mg (Calcium Acetate (Phosphate Bin) 667 Mg Cap 667 Mg PO TIDM 02/16/15 Reported Atorvastatin Calcium (Atorvastatin) 10 Mg Tab 10 Mg PO QPM 07/14/14 Reported Ecotrin Or Generic (Aspirin) 81 Mg Tab 81 Mg PO DAILY 09/12/11 Reported Review of Systems Constitutional: + see HPI Eyes: No worsening of vision ENT: No hearing loss Respiratory: + cough, + wheezing, No shortness of breath Cardiac: No chest pain, No edema, No orthopnea, No palpitations Abdomen: + constipation, No diarrhea, No nausea, No pain, No vomiting Musculoskeletal: No joint pain, No muscle pain Male : + problem reported (no change in voiding habits) Neuro: + weakness Psych: No anxiety, No depression symptoms Endo: + fatigue Skin: No new/changing skin lesions, No rash Physical Exam Date Time Temp Pulse Resp B/P Pulse Ox O2 Delivery O2 Flow Rate FiO2 07/15/16 16:50 36.8 89 166/53 93 Room Air 07/15/16 16:01 82 16 91 Room Air 07/15/16 15:40 94 Room Air 07/15/16 15:13 36.6 96 20 189/62 94 Room Air 07/15/16 13:38 36.6 103 18 160/58 98 Room Air 07/15/16 13:15 36.8 20 136/71 07/15/16 13:00 76 129/62 07/15/16 12:45 73 133/61 07/15/16 12:30 73 145/59 07/15/16 12:15 71 133/60 07/15/16 12:00 75 141/64 07/15/16 11:45 72 138/62 07/15/16 11:30 71 146/68 07/15/16 11:15 74 141/72 07/15/16 11:00 72 140/63 07/15/16 10:45 68 141/66 07/15/16 10:30 77 138/68 07/15/16 10:15 76 142/67 07/15/16 10:00 74 137/61 07/15/16 09:45 74 141/62 07/15/16 09:40 92 Room Air 07/15/16 09:30 37.5 76 142/68 07/15/16 07:56 36.7 88 20 169/70 92 Room Air 07/15/16 07:36 78 16 92 Room Air 07/15/16 07:10 Room Air 07/15/16 00:00 Room Air 07/14/16 23:00 36.8 84 20 160/66 93 Room Air 07/14/16 21:15 79 16 92 Room Air 07/14/16 20:25 37.2 79 18 179/64 95 Room Air 07/14/16 20:13 78 18 141/53 94 Room Air 24-Hour Column 07/15/16 08:00 Intake Total 759 ml Output Total 100 ml Balance 659 ml General Appearance: WD/WN, no apparent distress, + cachetic, + pertinent finding (lying flatin bed on RA) ENT: + nasal drainage, + muffled/hoarse voice, + pertinent finding (thick occasional cough) Neck: supple Respiratory/Chest: no respiratory distress, no accessory muscle use, + rhonchi , + wheezing (worse R > L (lying on R side)) Cardiovascular: regular rate, rhythm, no edema, + systolic murmur Abdomen: normal bowel sounds, non tender, soft, no organomegaly Extremities: no pedal edema, + pertinent finding (LUE AVF + t/b) Neurologic/Psych: alert, normal mood/affect, oriented x 3 Skin: no jaundice, warm/dry, no rash Diagnostics Last 24 Hours Test 07/14/16 21:01 07/15/16 06:00 07/15/16 08:13 07/15/16 13:19 Bedside Glucose 204 mg/dl 170 mg/dl 155 mg/dl White Blood Count 14.60 K/uL Red Blood Count 4.03 M/uL Hemoglobin 13.3 g/dL Hematocrit 39.5 % Mean Corpuscular Volume 98.0 fL Mean Corpuscular Hemoglobin 33.0 pg Mean Corpuscular Hemoglobin Concent 33.7 g/dl RDW Standard Deviation 47.9 fL RDW Coefficient of Variation 13.3 % Platelet Count 170 K/uL Mean Platelet Volume 10.3 fL Prothrombin Time 20.2 SECONDS Prothromb Time International Ratio 1.8 Sodium Level 132 mmol/L Potassium Level 3.9 mmol/L Chloride Level 93 mmol/L Carbon Dioxide Level 29 mmol/L Anion Gap 10.0 mmol/L Blood Urea Nitrogen 67 mg/dl Creatinine 5.40 mg/dl Est Creatinine Clear Calc Drug Dose 10.4 ml/min Estimated GFR () 10.1 Estimated GFR (Non- 8.7 BUN/Creatinine Ratio 12.2 Random Glucose 172 mg/dl Calcium Level 8.9 mg/dl Magnesium Level 2.7 mg/dl Test 07/15/16 16:06 07/15/16 16:45 Hepatitis B Surface Antigen NEG Hepatitis B Surface Antibody NEG Bedside Glucose 211 mg/dl Diagnostic Radiology: CXR LLL pna; BL pleural effusions; pulm vascular congestion EKG: ECG > atrial flutter ; variable AV block Assessment & Plan 86 y/o M w/ ESRD, A fib/flutter w/ subtherapeutic INR on presentation, DM, HTN admitted 07/14 w/ L sided PNA ESRD not anemic but would monitor this. K and other electrolytes controlled. HTN should improve with dialysis -for HD today; had 3L UF; reassess for need in AM; plan for sure to repeat on 07/17 -continue binders and will start renal vitamin pneumonia -per primary service Appreciate consultation; will follow with you.
[2016-07-15] MEDS: NEPHROCAPS PO SCH (21:38)
[2016-07-15] MEDS: ATORVASTATIN 10 MG TAB PO SCH (21:38)
[2016-07-15] MEDS ORDERED: ZOLPIDEM TARTRATE 5 MG TAB PO PRN (22:00)
[2016-07-16] VITALS (7 sets, daily range): BP systolic 133–145; BP diastolic 50–62; PULSE 60–87; TEMP 37.1–37.2; O2SAT 91–97
[2016-07-16] MEDS: ALBUT/IPRATROP 3MG/0.5MG NEB 3 ML VIAL INH SCH ×4 (07:20→19:50)
[2016-07-16 07:57] LABS: CREATININE 4.6 mg/dl (0.60-1.40)
--- NOTE | 2016-07-16 08:16 | Nephrology Progress Note ---
Nephrology Progress Note Date of Service: Jul 16, 2016. Subjective 86 yo male with uri/pneumonia/flu like symptoms with esrd on . had dialysis yesterday. has poor appetite and is weak with a dry cough. no fevers or chills. not requiring oxygen. Objective Date Time Temp Pulse Resp B/P Pulse Ox O2 Delivery O2 Flow Rate FiO2 07/16/16 07:23 Room Air 07/16/16 07:20 75 16 91 Room Air 07/15/16 23:35 36.8 85 18 137/54 94 Room Air 07/15/16 23:25 Room Air 07/15/16 20:29 77 16 92 Room Air 07/15/16 16:50 36.8 89 166/53 93 Room Air 07/15/16 16:01 82 16 91 Room Air 07/15/16 15:40 94 Room Air 07/15/16 15:13 36.6 96 20 189/62 94 Room Air 07/15/16 13:38 36.6 103 18 160/58 98 Room Air 07/15/16 13:15 36.8 20 136/71 07/15/16 13:00 76 129/62 07/15/16 12:45 73 133/61 07/15/16 12:30 73 145/59 07/15/16 12:15 71 133/60 07/15/16 12:00 75 141/64 07/15/16 11:45 72 138/62 07/15/16 11:30 71 146/68 07/15/16 11:15 74 141/72 07/15/16 11:00 72 140/63 07/15/16 10:45 68 141/66 07/15/16 10:30 77 138/68 07/15/16 10:15 76 142/67 07/15/16 10:00 74 137/61 07/15/16 09:45 74 141/62 07/15/16 09:40 92 Room Air 07/15/16 09:30 37.5 76 142/68 Physical Exam: General-aaox3 Eyes-no scleral icterus ENT-mmm Neck-supple Lungs-right basilar rales Heart-rate controlled Abdomen-bs+ s/nt/nd Extremities-mild edema Neuro-nonfocal Current Inpatient Medications Medications (Trade) Dose Ordered Sig/Gypsy Route Start Time Stop Time Status Last Admin Dose Admin Acetaminophen (Tylenol Tab) 650 mg Q4H PRN PO 07/14/16 18:45 08/13/16 18:44 Ondansetron HCl 4 mg 4 mg Q6H PRN IV 07/14/16 18:45 08/13/16 18:44 Levofloxacin/Prmx (Levaquin / D5W/ Premixed D5W) 100 ml @ 100 mls/hr Q48H IV 07/16/16 18:00 07/20/16 23:59 Albuterol/ Ipratropium (Duoneb) 3 ml QIDR INH 07/14/16 20:00 08/13/16 19:59 07/16/16 07:20 3 ML Aspirin (Ecotrin Tab) 81 mg DAILY PO 07/15/16 09:00 08/14/16 08:59 07/15/16 08:29 81 MG Atorvastatin Calcium (Lipitor Tab) 10 mg QPM PO 07/14/16 21:00 08/13/16 20:59 07/15/16 21:38 10 MG Calcium Acetate (Phoslo Cap) 667 mg TIDM PO 07/15/16 08:00 08/14/16 07:59 07/15/16 17:54 667 MG Warfarin Sodium (Coumadin Tab) 2.5 mg DAILY@1600 PO 07/15/16 16:00 08/14/16 15:59 07/15/16 15:43 2.5 MG Insulin Aspart (novoLOG ASPART) SLIDING SCALE G... ACHS SC 07/14/16 21:00 08/13/16 20:59 07/15/16 21:43 5 UNITS Albuterol Sulfate (Ventolin 0.083% 2.5MG/3ML Neb) 2.5 mg Q6R PRN INH 07/14/16 19:00 08/13/16 18:59 Glucose (Glucose 40% Gel) 15-30 GRAMS 15 GRAMS... UD PRN PO 07/14/16 21:45 08/13/16 21:44 Glucose (Glucose Chew Tab) 4-8 Tablets 4 Tabl... UD PRN PO 07/14/16 21:45 08/13/16 21:44 Dextrose (Dextrose 50% 50ML Syringe) 25-50ML OF 50% DW IV FOR... UD PRN IV 07/14/16 21:45 08/13/16 21:44 Glucagon (Glucagon Inj) 1 mg UD PRN SQ 07/14/16 21:45 08/13/16 21:44 Levofloxacin (Consult) 1 ea UD PRN N/A 07/15/16 05:30 08/14/16 05:29 Insulin Human NPH (novoLIN-N NPH) 15 units QAM SC 07/16/16 09:00 08/15/16 08:59 Vitamin B Complex/ Vit C/Folic Acid (Nephrocaps) 1 cap HS PO 07/15/16 21:00 08/14/16 20:59 07/15/16 21:38 1 CAP Zolpidem Tartrate (Ambien Tab) 5 mg HS PRN PO 07/15/16 22:00 08/14/16 21:59 Last 24 Hours Test 07/15/16 13:19 07/15/16 16:06 07/15/16 16:45 07/15/16 20:52 Bedside Glucose 155 mg/dl 211 mg/dl 222 mg/dl Hepatitis B Surface Antigen NEG Hepatitis B Surface Antibody NEG Test 07/16/16 06:55 Creatinine 4.60 mg/dl Est Creatinine Clear Calc Drug Dose 12.0 ml/min Estimated GFR () 12.3 Estimated GFR (Non- 10.6 Assessment & Plan ESRD-plan on dialysis --. since not requiring oxygen, although patient with rhonchi at the right base, may be more infiltrate than fluid. no dialysis today , plan on dialysis again tomorrow.
[2016-07-16] MEDS: ASPIRIN 81 MG ECTAB PO SCH (08:38)
[2016-07-16] MEDS: CALCIUM ACETATE 667MG GELCAP PO SCH ×3 (08:38→18:37)
[2016-07-16] MEDS: INSULIN ASPART 100 UNITS/ML 3 ML PEN SC SCH ×4 (08:40→21:06)
[2016-07-16] MEDS: INSULIN HUMAN NPH SC SCH (08:41)
--- NOTE | 2016-07-16 09:27 | Clinical Documentation Query ---
YANNI Spencer : CLINICAL DOCUMENTATION QUERY Patient is an 86 year old male admitted for evaluation and treatment of left lower and middle lobe pneumonia. He is being treated with IV Levaquin. Risk factors include advanced age, diabetes mellitus, end-stage renal disease, and frequent healthcare encounters, and recent antibiotic use. In your clinical opinion is this patient being managed for: ( ) Possible gram-negative pneumonia ( ) Other explanation of clinical findings (Please Explain) ( ) Unable to determine (Please Define) ( ) Need to Discuss ( ) Not Agree The medical record reflects the following clinical findings, treatment, and risk factors. Clinical Indicators: As above Treatment: IV Levaquin Risk Factors: Risk factors include advanced age, diabetes mellitus, end-stage renal disease, and frequent healthcare encounters, and recent antibiotic use. Please clarify and document your clinical opinion in the progress notes and discharge summary. Terms such as "probable", "suspected", "likely", "questionable", "possible", or "still to be ruled out" are acceptable. IF IN AGREEMENT, YOU MUST DOCUMENT ABOVE DIAGNOSTIC STATEMENT IN DAILY PROGRESS NOTES AND DISCHARGE SUMMARY. This document is not part of the patient's record. Thank You, Jacobo Lawrence, RN [phone]
--- NOTE | 2016-07-16 12:57 | Progress Note ---
Medicine Progress Note Date & Time of Visit: Jul 16, 2016 at 12:39. Subjective Pt was seen and examined sitting in bed very comfortable with daughter at bedside Pt said that he feels fine he said that his cough improved he denies any chest pain, palpitation, dizziness and SOB Objective Last 8 Hrs Date Time Temp Pulse Resp B/P Pulse Ox O2 Delivery O2 Flow Rate FiO2 07/16/16 11:34 83 16 92 Room Air 07/16/16 08:50 37.1 84 18 133/59 92 Room Air 07/16/16 07:23 Room Air 07/16/16 07:20 75 16 91 Room Air Physical Exam: General- No acute distress Head- atraumatic Eyes- PERRL, EOMI ENT- oropharynx clear Neck- supple, no JVD Lungs- mild coarse BS Heart- +systolic murmur, no gallop Abdomen- normal bowel sounds, soft Extremities- no calf tenderness Neuro- alert, oriented x 3; PERRL, EOMI; no facial palsy Skin- warm & dry Laboratory Results: Last 24 Hours Test 07/15/16 13:19 07/15/16 16:06 07/15/16 16:45 07/15/16 20:52 Bedside Glucose 155 mg/dl 211 mg/dl 222 mg/dl Hepatitis B Surface Antigen NEG Hepatitis B Surface Antibody NEG Test 07/16/16 06:55 07/16/16 08:36 07/16/16 12:14 Creatinine 4.60 mg/dl Est Creatinine Clear Calc Drug Dose 12.0 ml/min Estimated GFR () 12.3 Estimated GFR (Non- 10.6 Bedside Glucose 161 mg/dl 258 mg/dl Assessment & Plan LEFT LOWER LOBE PNEUMONIA presents with flu-like symptoms on admission WBC on admission 16K on admission, trending down to 14 CXR showed left mid and lower lobe pneumonia with small to mod R and small L pleural effusion On levaquin 500mg q48h Blood cx showed no growth so far Cont nebulizer treatment Clinically stable INSULIN-DEPENDENT DM 2 A1C 7.0 0n 06/02 diabetic diet ISS while in hospital Monitor BSG AC HS Check HBA1c in am ESRD ON HD HD MWF consult nephro had dialysis yesterday Would like to get HD tomorrow morning before discharge ATRIAL FIBRILLATION rate control INR subtherapeutic at 1.8 cont Coumadin same HTN BP stable Not on any BP meds Continue monitor bp DYSLIPIDEMIA Cont statin DVT PROPHYLAXIS Coumadin CODE STATUS DNR Consultants: Nephrology Current Inpatient Medications: Current Inpatient Medications Medications (Trade) Dose Ordered Sig/Gypsy Route Start Time Stop Time Status Last Admin Dose Admin Acetaminophen (Tylenol Tab) 650 mg Q4H PRN PO 07/14/16 18:45 08/13/16 18:44 Ondansetron HCl 4 mg 4 mg Q6H PRN IV 07/14/16 18:45 08/13/16 18:44 Levofloxacin/Prmx (Levaquin / D5W/ Premixed D5W) 100 ml @ 100 mls/hr Q48H IV 07/16/16 18:00 07/20/16 23:59 Albuterol/ Ipratropium (Duoneb) 3 ml QIDR INH 07/14/16 20:00 08/13/16 19:59 07/16/16 11:34 3 ML Aspirin (Ecotrin Tab) 81 mg DAILY PO 07/15/16 09:00 08/14/16 08:59 07/16/16 08:38 81 MG Atorvastatin Calcium (Lipitor Tab) 10 mg QPM PO 07/14/16 21:00 08/13/16 20:59 07/15/16 21:38 10 MG Calcium Acetate (Phoslo Cap) 667 mg TIDM PO 07/15/16 08:00 08/14/16 07:59 07/16/16 12:32 667 MG Warfarin Sodium (Coumadin Tab) 2.5 mg DAILY@1600 PO 07/15/16 16:00 08/14/16 15:59 07/15/16 15:43 2.5 MG Insulin Aspart (novoLOG ASPART) SLIDING SCALE G... ACHS SC 07/14/16 21:00 08/13/16 20:59 07/16/16 12:35 11 UNITS Albuterol Sulfate (Ventolin 0.083% 2.5MG/3ML Neb) 2.5 mg Q6R PRN INH 07/14/16 19:00 08/13/16 18:59 Glucose (Glucose 40% Gel) 15-30 GRAMS 15 GRAMS... UD PRN PO 07/14/16 21:45 08/13/16 21:44 Glucose (Glucose Chew Tab) 4-8 Tablets 4 Tabl... UD PRN PO 07/14/16 21:45 08/13/16 21:44 Dextrose (Dextrose 50% 50ML Syringe) 25-50ML OF 50% DW IV FOR... UD PRN IV 07/14/16 21:45 08/13/16 21:44 Glucagon (Glucagon Inj) 1 mg UD PRN SQ 07/14/16 21:45 08/13/16 21:44 Levofloxacin (Consult) 1 ea UD PRN N/A 07/15/16 05:30 08/14/16 05:29 Insulin Human NPH (novoLIN-N NPH) 15 units QAM SC 07/16/16 09:00 08/15/16 08:59 07/16/16 08:41 15 UNITS Vitamin B Complex/ Vit C/Folic Acid (Nephrocaps) 1 cap HS PO 07/15/16 21:00 08/14/16 20:59 07/15/16 21:38 1 CAP Zolpidem Tartrate (Ambien Tab) 5 mg HS PRN PO 07/15/16 22:00 08/14/16 21:59
[2016-07-16] MEDS: WARFARIN SOD 2.5 MG TAB PO SCH (16:27)
[2016-07-16] MEDS ORDERED: LEVOFLOXACIN / D5W 500 MG in PREMIXED IN D5W 100 ML IV SCH (18:00)
[2016-07-16] MEDS: NEPHROCAPS PO SCH (20:54)
[2016-07-16] MEDS: ATORVASTATIN 10 MG TAB PO SCH (20:54)
[2016-07-17] VITALS (18 sets, daily range): BP systolic 107–157; BP diastolic 46–68; PULSE 74–95; TEMP 36.7–37.5; O2SAT 92–93
[2016-07-17] MEDS ORDERED: EPOETIN ALFA 10,000 UNITS/ML VIAL IV. SCH (07:30)
[2016-07-17] MEDS: ALBUT/IPRATROP 3MG/0.5MG NEB 3 ML VIAL INH SCH ×3 (07:52→15:45)
[2016-07-17 08:28] LABS: HEMATOCRIT 36.1 % (42-52); MEAN CELL VOLUME 94.5 fL (80-100); MEAN CORPUSCULAR HEMOGLOBIN 31.9 pg (25-34); MEAN CORPUSCULAR HGB CONC 33.8 g/dl (32-36); MEAN PLATELET VOLUME 9.5 fL (7.4-10.4); PLATELET COUNT 160 K/uL (130-400); RED BLOOD COUNT 3.82 M/uL (4.7-6.1); WHITE BLOOD COUNT 6.76 K/uL (4.8-10.8)
[2016-07-17] MEDS: ASPIRIN 81 MG ECTAB PO SCH (08:44)
[2016-07-17] MEDS: CALCIUM ACETATE 667MG GELCAP PO SCH ×2 (08:44→15:48)
[2016-07-17] MEDS: INSULIN ASPART 100 UNITS/ML 3 ML PEN SC SCH ×2 (08:48→15:52)
[2016-07-17] MEDS: INSULIN HUMAN NPH SC SCH (08:48)
[2016-07-17 08:59] LABS: ESTIMATED AVERAGE GLUCOSE 160 mg/dl; HA1C FLAG Normal (Normal)
[2016-07-17 09:07] LABS: BUN/CREATININE RATIO 13.9 (10-20); CALCIUM 9.2 mg/dl (8.5-10.1); CREATININE 5.6 mg/dl (0.60-1.40)
--- NOTE | 2016-07-17 10:52 | Nephrology Progress Note ---
Nephrology Progress Note Date of Service: Jul 17, 2016. Subjective 86 yo male with uri/pneumonia/flu like symptoms with esrd on . pt clinically improving. breathing better. wants dialysis today and then wants to go home. still with cough but he feels he is strong enough to go home. Objective Date Time Temp Pulse Resp B/P Pulse Ox O2 Delivery O2 Flow Rate FiO2 07/17/16 10:19 Room Air 07/17/16 07:52 81 14 93 Room Air 07/17/16 07:02 36.7 87 17 150/67 92 Room Air 07/17/16 00:15 Room Air 07/16/16 23:22 37.1 60 17 137/50 97 Room Air 07/16/16 19:50 74 16 91 Room Air 07/16/16 16:15 Room Air 07/16/16 15:49 37.2 87 16 145/62 93 Room Air 07/16/16 15:25 79 16 91 Room Air 07/16/16 11:34 83 16 92 Room Air Physical Exam: General-aaox3 Eyes-no scleral icterus ENT-mmm Neck-supple Lungs-decreased breath sounds at right base Heart-rate controlled Abdomen-bs+ s/nt/nd Extremities-no edema Neuro-nonfocal Current Inpatient Medications Medications (Trade) Dose Ordered Sig/Gypsy Route Start Time Stop Time Status Last Admin Dose Admin Acetaminophen (Tylenol Tab) 650 mg Q4H PRN PO 07/14/16 18:45 08/13/16 18:44 Ondansetron HCl 4 mg 4 mg Q6H PRN IV 07/14/16 18:45 08/13/16 18:44 Levofloxacin/Prmx (Levaquin / D5W/ Premixed D5W) 100 ml @ 100 mls/hr Q48H IV 07/16/16 18:00 07/20/16 23:59 07/16/16 18:37 100 MLS/HR Albuterol/ Ipratropium (Duoneb) 3 ml QIDR INH 07/14/16 20:00 08/13/16 19:59 07/17/16 07:52 3 ML Aspirin (Ecotrin Tab) 81 mg DAILY PO 07/15/16 09:00 08/14/16 08:59 07/17/16 08:44 81 MG Atorvastatin Calcium (Lipitor Tab) 10 mg QPM PO 07/14/16 21:00 08/13/16 20:59 07/16/16 20:54 10 MG Calcium Acetate (Phoslo Cap) 667 mg TIDM PO 07/15/16 08:00 08/14/16 07:59 07/17/16 08:44 667 MG Warfarin Sodium (Coumadin Tab) 2.5 mg DAILY@1600 PO 07/15/16 16:00 08/14/16 15:59 07/16/16 16:27 2.5 MG Insulin Aspart (novoLOG ASPART) SLIDING SCALE G... ACHS SC 07/14/16 21:00 08/13/16 20:59 07/16/16 21:06 4 UNITS Albuterol Sulfate (Ventolin 0.083% 2.5MG/3ML Neb) 2.5 mg Q6R PRN INH 07/14/16 19:00 08/13/16 18:59 Glucose (Glucose 40% Gel) 15-30 GRAMS 15 GRAMS... UD PRN PO 07/14/16 21:45 08/13/16 21:44 Glucose (Glucose Chew Tab) 4-8 Tablets 4 Tabl... UD PRN PO 07/14/16 21:45 08/13/16 21:44 Dextrose (Dextrose 50% 50ML Syringe) 25-50ML OF 50% DW IV FOR... UD PRN IV 07/14/16 21:45 08/13/16 21:44 Glucagon (Glucagon Inj) 1 mg UD PRN SQ 07/14/16 21:45 08/13/16 21:44 Levofloxacin (Consult) 1 ea UD PRN N/A 07/15/16 05:30 08/14/16 05:29 Insulin Human NPH (novoLIN-N NPH) 15 units QAM SC 07/16/16 09:00 08/15/16 08:59 07/17/16 08:48 15 UNITS Vitamin B Complex/ Vit C/Folic Acid (Nephrocaps) 1 cap HS PO 07/15/16 21:00 08/14/16 20:59 07/16/16 20:54 1 CAP Zolpidem Tartrate (Ambien Tab) 5 mg HS PRN PO 07/15/16 22:00 08/14/16 21:59 07/16/16 20:54 5 MG Epoetin Constantino (Procrit Inj) 10,000 units TODAY@0730 IV. 07/17/16 07:30 07/17/16 18:00 Last 24 Hours Test 07/16/16 12:14 07/16/16 16:47 07/16/16 20:51 07/17/16 06:59 Bedside Glucose 258 mg/dl 241 mg/dl 209 mg/dl 95 mg/dl Test 07/17/16 08:10 White Blood Count 6.76 K/uL Red Blood Count 3.82 M/uL Hemoglobin 12.2 g/dL Hematocrit 36.1 % Mean Corpuscular Volume 94.5 fL Mean Corpuscular Hemoglobin 31.9 pg Mean Corpuscular Hemoglobin Concent 33.8 g/dl RDW Standard Deviation 46.4 fL RDW Coefficient of Variation 13.3 % Platelet Count 160 K/uL Mean Platelet Volume 9.5 fL Sodium Level 134 mmol/L Potassium Level 4.0 mmol/L Chloride Level 96 mmol/L Carbon Dioxide Level 24 mmol/L Anion Gap 14.0 mmol/L Blood Urea Nitrogen 78 mg/dl Creatinine 5.60 mg/dl Est Creatinine Clear Calc Drug Dose 9.9 ml/min Estimated GFR () 9.7 Estimated GFR (Non- 8.3 BUN/Creatinine Ratio 13.9 Random Glucose 125 mg/dl Estimated Average Glucose 160 mg/dl Hemoglobin A1c 7.2 % Calcium Level 9.2 mg/dl Assessment & Plan ESRD-plan on dialysis m-w-f. will be dialyzed next today. ok from renal perspective to go home today after dialysis. will resume outpt dialysis on friday.
[2016-07-17] MEDS: WARFARIN SOD 2.5 MG TAB PO SCH (15:48)
--- NOTE | 2016-07-17 16:34 | Progress Note ---
Medicine Progress Note Date & Time of Visit: Jul 17, 2016 at 16:29. Subjective Pt was seen and examined Sitting in bed comfortable with no distress he is getting ready to eat his dinner he just finished HD. Pt said that he feels good and he is ready to go home denies any chest pain, palpitation, dizziness and SOB Objective Last 8 Hrs Date Time Temp Pulse Resp B/P Pulse Ox O2 Delivery O2 Flow Rate FiO2 07/17/16 15:44 37.3 95 18 157/68 92 Room Air 07/17/16 15:14 36.8 81 145/57 07/17/16 14:30 83 120/57 07/17/16 14:15 75 128/51 07/17/16 14:00 79 112/57 07/17/16 13:45 74 119/46 07/17/16 13:30 89 114/55 07/17/16 13:15 84 107/56 07/17/16 13:00 83 119/54 07/17/16 12:45 87 143/66 07/17/16 12:30 81 135/59 07/17/16 12:15 88 123/56 07/17/16 12:00 77 121/66 07/17/16 11:53 79 153/62 07/17/16 11:38 37.5 90 155/63 07/17/16 10:19 Room Air Physical Exam: General- No acute distress Head- atraumatic Eyes- PERRL, EOMI ENT- oropharynx clear Neck- supple, no JVD Lungs- No wheezing, no crackles Heart- +systolic murmur, no gallop Abdomen- normal bowel sounds, soft Extremities- no calf tenderness Neuro- alert, oriented x 3; PERRL, EOMI; no facial palsy Skin- warm & dry Laboratory Results: Last 24 Hours Test 07/16/16 16:47 07/16/16 20:51 07/17/16 06:59 07/17/16 08:10 Bedside Glucose 241 mg/dl 209 mg/dl 95 mg/dl White Blood Count 6.76 K/uL Red Blood Count 3.82 M/uL Hemoglobin 12.2 g/dL Hematocrit 36.1 % Mean Corpuscular Volume 94.5 fL Mean Corpuscular Hemoglobin 31.9 pg Mean Corpuscular Hemoglobin Concent 33.8 g/dl RDW Standard Deviation 46.4 fL RDW Coefficient of Variation 13.3 % Platelet Count 160 K/uL Mean Platelet Volume 9.5 fL Sodium Level 134 mmol/L Potassium Level 4.0 mmol/L Chloride Level 96 mmol/L Carbon Dioxide Level 24 mmol/L Anion Gap 14.0 mmol/L Blood Urea Nitrogen 78 mg/dl Creatinine 5.60 mg/dl Est Creatinine Clear Calc Drug Dose 9.9 ml/min Estimated GFR () 9.7 Estimated GFR (Non- 8.3 BUN/Creatinine Ratio 13.9 Random Glucose 125 mg/dl Estimated Average Glucose 160 mg/dl Hemoglobin A1c 7.2 % Calcium Level 9.2 mg/dl Test 07/17/16 11:09 07/17/16 11:49 Bedside Glucose 248 mg/dl Assessment & Plan LEFT LOWER LOBE PNEUMONIA presents with flu-like symptoms on admission WBC on admission 16K on admission, trending down to 14 CXR showed left mid and lower lobe pneumonia with small to mod R and small L pleural effusion On levaquin 500mg q48h Blood cx showed no growth so far Cont nebulizer treatment Clinically stable will discharge today on po levaquin INSULIN-DEPENDENT DM 2 recent A1C 7.2 on 07/17 ISS while in hospital Monitor BSG AC HS ESRD ON HD HD MWF consult nephro had dialysis today stable to discharge from nephro standpoint next HD on Friday ATRIAL FIBRILLATION rate control INR subtherapeutic at 1.8 cont Coumadin same Continue monitor INR HTN BP stable Not on any BP meds Continue monitor bp DYSLIPIDEMIA Cont statin DVT PROPHYLAXIS Coumadin CODE STATUS DNR Consultants: Nephrology Current Inpatient Medications: Current Inpatient Medications Medications (Trade) Dose Ordered Sig/Gypsy Route Start Time Stop Time Status Last Admin Dose Admin Acetaminophen (Tylenol Tab) 650 mg Q4H PRN PO 07/14/16 18:45 08/13/16 18:44 Ondansetron HCl 4 mg 4 mg Q6H PRN IV 07/14/16 18:45 08/13/16 18:44 Levofloxacin/Prmx (Levaquin / D5W/ Premixed D5W) 100 ml @ 100 mls/hr Q48H IV 07/16/16 18:00 07/20/16 23:59 07/16/16 18:37 100 MLS/HR Albuterol/ Ipratropium (Duoneb) 3 ml QIDR INH 07/14/16 20:00 08/13/16 19:59 07/17/16 07:52 3 ML Aspirin (Ecotrin Tab) 81 mg DAILY PO 07/15/16 09:00 08/14/16 08:59 07/17/16 08:44 81 MG Atorvastatin Calcium (Lipitor Tab) 10 mg QPM PO 07/14/16 21:00 08/13/16 20:59 07/16/16 20:54 10 MG Calcium Acetate (Phoslo Cap) 667 mg TIDM PO 07/15/16 08:00 08/14/16 07:59 07/17/16 15:48 667 MG Warfarin Sodium (Coumadin Tab) 2.5 mg DAILY@1600 PO 07/15/16 16:00 08/14/16 15:59 07/17/16 15:48 2.5 MG Insulin Aspart (novoLOG ASPART) SLIDING SCALE G... ACHS SC 07/14/16 21:00 08/13/16 20:59 07/17/16 15:52 11 UNITS Albuterol Sulfate (Ventolin 0.083% 2.5MG/3ML Neb) 2.5 mg Q6R PRN INH 07/14/16 19:00 08/13/16 18:59 Glucose (Glucose 40% Gel) 15-30 GRAMS 15 GRAMS... UD PRN PO 07/14/16 21:45 08/13/16 21:44 Glucose (Glucose Chew Tab) 4-8 Tablets 4 Tabl... UD PRN PO 07/14/16 21:45 08/13/16 21:44 Dextrose (Dextrose 50% 50ML Syringe) 25-50ML OF 50% DW IV FOR... UD PRN IV 07/14/16 21:45 08/13/16 21:44 Glucagon (Glucagon Inj) 1 mg UD PRN SQ 07/14/16 21:45 08/13/16 21:44 Levofloxacin (Consult) 1 ea UD PRN N/A 07/15/16 05:30 08/14/16 05:29 Insulin Human NPH (novoLIN-N NPH) 15 units QAM SC 07/16/16 09:00 08/15/16 08:59 07/17/16 08:48 15 UNITS Vitamin B Complex/ Vit C/Folic Acid (Nephrocaps) 1 cap HS PO 07/15/16 21:00 08/14/16 20:59 07/16/16 20:54 1 CAP Zolpidem Tartrate (Ambien Tab) 5 mg HS PRN PO 07/15/16 22:00 08/14/16 21:59 07/16/16 20:54 5 MG Epoetin Constantino (Procrit Inj) 10,000 units TODAY@0730 IV. 07/17/16 07:30 07/17/16 18:00 07/17/16 14:25 10,000 UNITS
[2016-07-17] MEDS ORDERED: B-COCAP20 PO (16:39)
[2016-07-17] MEDS ORDERED: LEVO1TAB34 PO (16:39)
--- NOTE | 2016-07-17 16:45 | Discharge Instructions ---
Discharge Instructions Admission Reason for Admission: Pneumonia Discharge Discharge Diagnosis / Problem: Pneumonia, ESRD on HD, Hypertension, Diabetes Discharge Goals Goal(s): Decrease discomfort, Improve function, Improve disease control Activity Recommendations Activity Limitations: resume your previous activity (as tolerated) . Instructions / Follow-Up Instructions / Follow-Up Follow up with your primary care provider Dr. Burris on 07/22 at 12:50 Please complete the course of the antibiotic levaquin ( to be taken every 48hrs) Next Dialysis is Friday Continue follow with the coumadin clinic to check the INR Current Hospital Diet Patient's current hospital diet: Renal Diet Discharge Diet Recommended Diet: Diabetes Type 2 Diet, Renal Diet Pending Studies Studies pending at discharge: no Laboratory Results Hemoglobin A1c Test 07/17/16 08:10 Range/Units Estimated Average Glucose 160 mg/dl Hemoglobin A1c 7.2 H 4.5-5.6 % Medical Emergencies . Who to Call and When: Medical Emergencies: If at any time you feel your situation is an emergency, please call 911 immediately. . Non-Emergent Contact Non-Emergency issues call your: Primary Care Provider Call Non-Emergent contact if: you have any medication questions . . "Provider Documentation" section prepared by Dewayne Morris. VTE Core Measure Inpt VTE Proph given/why not?: Warfarin (Coumadin)
--- NOTE | 2016-07-23 01:52 | Discharge Summary ---
Discharge Summary Date of Service Jul 23, 2016. Discharge Summary Admission Date: Jul 14, 2016 at 18:37 Discharge Date: Jul 17, 2016 Discharge Disposition: Home Principal Diagnosis: Pneumonia Secondary Diagnoses/Problems: Pneumonia ESRD on HD Hypertension Insulin dependent Diabetes HTN Afib Consultations: Nephrology Medication Reconciliation New Medications: B-Complex W/ C & Folic Acid (Renal) 1 Cap Cap 1 CAP PO HS for 30 Days, #30 CAP Continued Medications: Aspirin Enteric Coated (Ecotrin Or Generic) 81 Mg Tab 81 MG PO DAILY, 0 Refills Atorvastatin (Atorvastatin Calcium) 10 Mg Tab 10 MG PO QPM Calcium Acetate (Phosphate Bin (Phoslo 667 Mg) 667 Mg Cap 667 MG PO TIDM Insulin Isophane (Human) (Humulin N Kwikpen) 100 Unit/Ml Inj 15 UNITS SC QAM Insulin Lispro (Human) (Humalog) 100 Unit/Ml Inj 4 UNITS SC QDB Insulin Lispro (Human) (Humalog) 100 Unit/Ml Inj 4 UNITS SC QDL Insulin Lispro (Human) (Humalog) 100 Unit/Ml Inj 5 UNITS SC QDD Warfarin Sodium (Warfarin Sodium) 5 Mg Tab 2.5 MG PO DAILY TAKE HALF A TABLET (2.5 MG) EVERY DAY OR OTHERWISE DIRECTED TO TAKE BY ANTICOAGULATION CLINIC/MD. Admission Information HPI (per Admitting provider): This is an 86 y/o male with PMHx of ESRD on HD, Insulin-dependent DM 2, Afib on Coumadin, HTN, Dyslipidemia and other problems as outlined below who presents to the ED c/o flu-like sxs. Pt reports that 2 days ago he developed fatigue, chills, muscle aches and congestion. He has been taking OTC decongestants at home with minimal relief. Pt has ESRD on HD MWF. He currently lives at home with his partner. Pt denies fevers, chest pain, SOB, wheezing, abd pain, N/V, bowel or bladder issues, LE edema ,calf pain, lightheadedness/dizziness. In the ED, vitals are stable. Pt is afebrile with leukocytosis >16k. INR 1.8. CXR + Left mid and lower lobe pneumonia. Pt is stable and will be admitted for further evaluation and treatment. Physical Exam (per Admitting): General Appearance: WD/WN, no apparent distress, + pertinent finding (Pt is sitting on edge of bed with family at bedside ) Head: normocephalic, atraumatic Eyes: normal inspection ENT: hearing grossly normal Neck: supple Respiratory/Chest: chest non-tender, no respiratory distress, no accessory muscle use, + pertinent finding (crackles to left base; no wheezing noted) Cardiovascular: regular rate, rhythm, + systolic murmur (III/) Abdomen/GI: normal bowel sounds, non tender, soft Back: normal inspection Extremities/Musculoskelatal: normal inspection, no calf tenderness, + pedal edema (trace bilat) Neurologic/Psych: alert, normal mood/affect, oriented x 3 Skin: normal color, warm/dry Hospital Course LEFT LOWER LOBE PNEUMONIA presents with flu-like symptoms on admission WBC on admission 16K on admission, trending down to 14 CXR showed left mid and lower lobe pneumonia with small to mod R and small L pleural effusion On levaquin 500mg q48h Blood cx showed no growth so far Cont nebulizer treatment Clinically stable will discharge today on po levaquin INSULIN-DEPENDENT DM 2 recent A1C 7.2 on 07/17 ISS while in hospital Monitor BSG AC HS ESRD ON HD HD MWF consult nephro had dialysis today stable to discharge from nephro standpoint next HD on Friday ATRIAL FIBRILLATION rate control INR subtherapeutic at 1.8 cont Coumadin same Continue monitor INR HTN BP stable Not on any BP meds Continue monitor bp DYSLIPIDEMIA Cont statin DVT PROPHYLAXIS Coumadin CODE STATUS DNR Total time spent on discharge = 35 minutes This includes examination of the patient, discharge planning, medication reconciliation, and communication with other providers. Discharge Instructions Discharge Instructions Admission Reason for Admission: Pneumonia Discharge Discharge Diagnosis / Problem: Pneumonia, ESRD on HD, Hypertension, Diabetes Discharge Goals Goal(s): Decrease discomfort, Improve function, Improve disease control Activity Recommendations Activity Limitations: resume your previous activity (as tolerated) . Instructions / Follow-Up Instructions / Follow-Up Follow up with your primary care provider Dr. Burris on 07/22 at 12:50 Please complete the course of the antibiotic levaquin ( to be taken every 48hrs) Next Dialysis is Friday Continue follow with the coumadin clinic to check the INR Current Hospital Diet Patient's current hospital diet: Renal Diet Discharge Diet Recommended Diet: Diabetes Type 2 Diet, Renal Diet Pending Studies Studies pending at discharge: no Laboratory Results Hemoglobin A1c Test 07/17/16 08:10 Range/Units Estimated Average Glucose 160 mg/dl Hemoglobin A1c 7.2 H 4.5-5.6 % Medical Emergencies . Who to Call and When: Medical Emergencies: If at any time you feel your situation is an emergency, please call 911 immediately. . Non-Emergent Contact Non-Emergency issues call your: Primary Care Provider Call Non-Emergent contact if: you have any medication questions . . "Provider Documentation" section prepared by Dewayne Morris. VTE Core Measure Inpt VTE Proph given/why not?: Warfarin (Coumadin) Additional Copies To Karlos Burris M.D. (MEDICAL)
== END 2016-07-17 17:15 | disposition home or self-care (01) | DRG 193 ==
LOC: ENRESERVDT → ENRESERVTM → C.EDB 15:16 → C.MSW 18:37
PROVIDERS: ADMIT Internal Medicine; ATTEND Internal Medicine
DX: J18.9 Pneumonia, unspecified organism (principal); N18.6 End stage renal disease; I12.0 Hypertensive chronic kidney disease with stage 5 chronic kidney disease or end stage renal disease; J90 Pleural effusion, not elsewhere classified; Z99.2 Dependence on renal dialysis; E11.22 Type 2 diabetes mellitus with diabetic chronic kidney disease; I48.2 Chronic atrial fibrillation; E78.5 Hyperlipidemia, unspecified; Z66 Do not resuscitate; N40.0 Benign prostatic hyperplasia without lower urinary tract symptoms; K40.90 Unilateral inguinal hernia, without obstruction or gangrene, not specified as recurrent; Z79.01 Long term (current) use of anticoagulants; Z87.891 Personal history of nicotine dependence; Z83.3 Family history of diabetes mellitus; Z82.49 Family history of ischemic heart disease and other diseases of the circulatory system; Z79.82 Long term (current) use of aspirin; Z79.4 Long term (current) use of insulin

== ENCOUNTER 2016-07-19 13:26 | Emergency (ER) | payer MEDICARE, OTHER ==
[~2016-07-19] VITALS: Ht 172.7 cm; Wt 93.7 kg
[~2016-07-19 13:26] MED LIST changes: +B-COCAP20 PO; -FLM4 PO; +INSU100I SC; -INSU100I2 SC; +LEVO1TAB34 PO
[2016-07-19 13:35] VITALS: TEMP 36.7; Ht 172.7 cm; Wt 93.7 kg
[2016-07-19 14:37] VITALS: O2SAT 93
[2016-07-19] MEDS ORDERED: ALBUT/IPRATROP 3MG/0.5MG NEB 3 ML VIAL INH STA (15:05)
--- NOTE | 2016-07-19 15:11 | EMERGENCY ROOM VISIT NOTE ---
History Report prepared by Radha: Ricardo Perez Under the Supervision of: Dr. Brandan Boles M.D. First contact with patient: 15:00 Chief Complaint: RESPIRATORY PROBLEMS Stated Complaint: DOCTOR SENT TO GET CHECKED FOR FLUID BY HEART/LUNG Nursing Triage Summary: Triage note: pt daughter reports pt was discharged from [facility] on friday for pnemonia - pt remains on po levaquin. pt had dialysis today. pt reports increased shortness of breath since friday. sob increases with exertion History of Present Illness The patient is a 86 year old male who presents to the Emergency Room with complaints of persistent shortness of breath starting 2 days ago. The patient also reports a cough with mucous production starting about a week ago. He has worsening symptoms with lying down flat. He was discharged from [facility] 2 days ago after being evaluated for pneumonia. He states that he feels worst now then he did when he was discharged. He denies fevers, chills , chest pain, abdominal pain, or any other complaints. He denies any history of CHF. He has a history of A-Fib. Source of History: patient Onset: 2 days ago Position: other (global) Quality: other (shortness of breath) Timing: other (persistent) Modifying Factors (Worsening): other (Lying down flat) Associated Symptoms: + cough, No SOB, No abdominal pain, No chest pain, No chills, No fevers Review of Systems All systems have been listed, reviewed, and are negative other than those previously mentioned. Please see Additional Medical History Sheet. Past Medical & Surgical Medical Problems: (1) Afib (2) BPH (benign prostatic hyperplasia) (3) Diabetes mellitus, type II (4) Dyslipidemia (5) ESRD (end stage renal disease) (6) Hypertension (7) Inguinal hernia Surgical Problems: (1) H/O cataract removal with insertion of prosthetic lens (2) S/P lumbar spinal fusion Family History Cancer Diabetes mellitus Heart disease Hypertension Social History Smoking Status: Never Smoker Alcohol Use: none Drug Use: none Marital Status: in relationship Housing Status: lives with significant other Occupation Status: retired Current/Historical Medications Scheduled Aspirin Enteric Coated (Ecotrin Or Generic), 81 MG PO DAILY Atorvastatin (Atorvastatin Calcium), 10 MG PO QPM B-Complex W/ C & Folic Acid (Renal), 1 CAP PO HS Calcium Acetate (Phosphate Bin (Phoslo 667 Mg), 667 MG PO TIDM Insulin Isophane (Human) (Humulin N Kwikpen), 15 UNITS SC QAM Insulin Lispro (Human) (Humalog), 4 UNITS SC QDB Insulin Lispro (Human) (Humalog), 4 UNITS SC QDL Insulin Lispro (Human) (Humalog), 5 UNITS SC QDD Levofloxacin (Levaquin), 500 MG PO Q2D Warfarin Sodium (Warfarin Sodium), 2.5 MG PO DAILY Allergies Coded Allergies: Hydralazine (Verified Allergy, Unknown, DOESN'T FEEL WELL, 07/19/16) Sulfa Antibiotics (Verified Allergy, Unknown, `, 07/19/16) Benazepril (Verified Adverse Reaction, Unknown, DIZZINESS, 07/19/16) Physical Exam Vital Signs Date Time Temp Pulse Resp B/P Pulse Ox O2 Delivery O2 Flow Rate FiO2 07/19/16 16:06 75 20 137/52 96 Room Air 07/19/16 15:49 95 Room Air 07/19/16 15:32 73 20 148/65 98 Nebulizer 8.0 07/19/16 14:47 93 Room Air 07/19/16 14:42 83 07/19/16 14:37 93 Room Air 07/19/16 14:36 75 18 115/75 93 Room Air 07/19/16 13:35 36.7 80 20 146/58 91 Room Air Pain Rating (0-10): 0 Physical Exam GENERAL: Patient awake, alert, oriented x 3. Patient follows commands. Patient does not appear toxic. Patient is adequately hydrated and well- nourished. SKIN: No erythema, pallor, cyanosis or rash HEENT: Normal head, pupils equal, reactive to light and accommodation. LUNGS: Wheezes in all yu. HEART: Grade 3/6 systolic murmur. No gallops. No rubs ABDOMEN: Soft, nontender. EXTREMITIES: No signs of trauma. No pedal or pretibial edema. No calf or thigh tenderness. Right arm dialysis shunt. NEUROLOGIC: Cranial nerves II-XII within normal limits. No gross motor sensory function deficits. Medical Decision & Procedures ER Provider Diagnostic Interpretation: CHEST 2 VIEWS ROUTINE CLINICAL HISTORY: Wheezing. Shortness of breath. COMPARISON STUDY: Chest radiograph July 14, 2016. FINDINGS: There is no pneumothorax. Small bilateral pleural effusions are noted. Moderate cardiomegaly is unchanged. Several vascular stents are in place. Left midlung opacity is improved. There are mild bibasilar opacities. There is no evidence for pulmonary edema. There is mild right infrahilar irregular opacity. IMPRESSION: 1. Small bilateral pleural effusions with bibasilar opacities. Left basilar opacity is suggestive of atelectasis. Right infrahilar opacity is indeterminate and could reflect pneumonia or atelectasis. Radiographic follow-up to ensure resolution is recommended. 2. Moderate cardiomegaly without evidence of pulmonary edema. Electronically signed by: Davide Fernandez M.D. 07/19/2016 4:00 PM Dictated Date/Time: 07/19/2016 3:58 PM The status of this report is Signed. Draft = Not yet reviewed or approved by Radiologist. Signed = Reviewed and approved by Radiologist. Laboratory Results 07/19/16 14:10 Red Blood Count 4.23, Mean Corpuscular Volume 93.4, Mean Corpuscular Hemoglobin 32.4, Mean Corpuscular Hemoglobin Concent 34.7, Mean Platelet Volume 9.4, Neutrophils (%) (Auto) 72.3, Lymphocytes (%) (Auto) 13.5, Monocytes (%) (Auto) 12.6, Eosinophils (%) (Auto) 1.1, Basophils (%) (Auto) 0.1, Neutrophils # (Auto ) 5.04, Lymphocytes # (Auto) 0.94, Monocytes # (Auto) 0.88, Eosinophils # (Auto ) 0.08, Basophils # (Auto) 0.01 07/19/16 14:10 Test 07/19/16 14:10 07/19/16 14:17 White Blood Count 6.98 K/uL (4.8-10.8) Red Blood Count 4.23 M/uL (4.7-6.1) Hemoglobin 13.7 g/dL (14.0-18.0) Hematocrit 39.5 % (42-52) Mean Corpuscular Volume 93.4 fL (80-100) Mean Corpuscular Hemoglobin 32.4 pg (25-34) Mean Corpuscular Hemoglobin Concent 34.7 g/dl (32-36) Platelet Count 192 K/uL (130-400) Mean Platelet Volume 9.4 fL (7.4-10.4) Neutrophils (%) (Auto) 72.3 % Lymphocytes (%) (Auto) 13.5 % Monocytes (%) (Auto) 12.6 % Eosinophils (%) (Auto) 1.1 % Basophils (%) (Auto) 0.1 % Neutrophils # (Auto) 5.04 K/uL (1.4-6.5) Lymphocytes # (Auto) 0.94 K/uL (1.2-3.4) Monocytes # (Auto) 0.88 K/uL (0.11-0.59) Eosinophils # (Auto) 0.08 K/uL (0-0.5) Basophils # (Auto) 0.01 K/uL (0-0.2) RDW Standard Deviation 44.5 fL (36.4-46.3) RDW Coefficient of Variation 13.1 % (11.5-14.5) Immature Granulocyte % (Auto) 0.4 % Immature Granulocyte # (Auto) 0.03 K/uL (0.00-0.02) Prothrombin Time 33.8 SECONDS (9.0-12.0) Prothromb Time International Ratio 3.0 (0.9-1.1) Activated Partial Thromboplast Time 38.9 SECONDS (21.0-31.0) Partial Thromboplastin Ratio 1.5 Anion Gap 12.0 mmol/L (3-11) Est Creatinine Clear Calc Drug Dose 16.7 ml/min Estimated GFR () 17.7 Estimated GFR (Non- 15.2 BUN/Creatinine Ratio 8.7 (10-20) Calcium Level 8.9 mg/dl (8.5-10.1) Total Bilirubin 0.9 mg/dl (0.2-1) Aspartate Amino Transf (AST/SGOT) 26 U/L (15-37) Alanine Aminotransferase (ALT/SGPT) 28 U/L (12-78) Alkaline Phosphatase 54 U/L (45-117) Troponin I 0.026 ng/ml (0-0.045) Total Protein 8.4 gm/dl (6.4-8.2) Albumin 3.5 gm/dl (3.4-5.0) Globulin 4.9 gm/dl (2.5-4.0) Albumin/Globulin Ratio 0.7 (0.9-2) Bedside Lactic Acid Venous 1.60 mmol/L (0.90-1.70) Laboratory results as stated above per my review. Medications Administered Medications (Trade) Dose Ordered Sig/Gypsy Route Start Time Stop Time Status Last Admin Dose Admin Albuterol/ Ipratropium (Duoneb) 3 ml NOW STAT INH 07/19/16 15:05 07/19/16 15:12 DC 07/19/16 15:31 3 ML ECG Indication: SOB/dyspnea Rate (beats per minute): 75 Rhythm: atrial flutter Findings: other (normal axis) Comparison ECG Date: July 14, 2016 Change: no significant change ED Course 1500: Past medical records reviewed. The patient was evaluated in room A04B. A complete history and physical examination was performed. 1650 the patient feels much better. He is now wheeze free. I believe the patient can safely go home. Patient will be given 2 puffs of Ventolin prior to departure. Medical Decision Differential diagnosis includes but is not limited to pneumonia, CHF, COPD, atrial flutter, aortic stenosis. The patient is a history of atrial fibrillation. He is currently in atrial flutter. Patient does have wheezes on exam. He does not appear to be in failure. Patient also has a chronic aortic stenosis murmur. The patient was given albuterol via nebulizer. The patient was reexamined and was wheeze free. I believe the patient can safely return home. He'll continue taking Levaquin. The patient is to follow- up with his family physician sometime within the next 3-4 days. Impression Primary Impression: Acute bronchitis Additional Impressions: Atrial flutter Aortic stenosis Scribe Attestation The scribe's documentation has been prepared under my direction and personally reviewed by me in its entirety. I confirm that the note above accurately reflects all work, treatment, procedures, and medical decision making performed by me. Departure Information Dispostion Home / Self-Care Referrals Karlos Burris M.D. (MEDICAL) (PCP) [facility] Instructions [facility] Additional Instructions 2 puffs of Ventolin inhaler every 4 hours as needed for wheezing or shortness of breath. Continue all of your current medications as prescribed. Follow-up with your family physician within the next 3-or 4 days. Return here sooner if you become more short of breath. Problem Qualifiers
[2016-07-19 15:18] LABS: BASO % 0.1 %; BASO ABS # 0.01 K/uL (0-0.2); COMPLETE YES; EOS % 1.1 %; HEMATOCRIT 39.5 % (42-52); IG% 0.4 %; LYMPH % 13.5 %; LYMPH ABS # 0.94 K/uL (1.2-3.4); MEAN CELL VOLUME 93.4 fL (80-100); MEAN CORPUSCULAR HEMOGLOBIN 32.4 pg (25-34); MEAN CORPUSCULAR HGB CONC 34.7 g/dl (32-36); MEAN PLATELET VOLUME 9.4 fL (7.4-10.4); MONO % 12.6 %; NEUT % 72.3 %; PLATELET COUNT 192 K/uL (130-400); RED BLOOD COUNT 4.23 M/uL (4.7-6.1); WHITE BLOOD COUNT 6.98 K/uL (4.8-10.8)
[2016-07-19 15:27] LABS: BUN/CREATININE RATIO 8.7 (10-20); CALCIUM 8.9 mg/dl (8.5-10.1); CREATININE 3.4 mg/dl (0.60-1.40); POTASSIUM 3.4 mmol/L (3.5-5.1)
[2016-07-19 15:32] LABS: ALB/GLOB RATIO 0.7 (0.9-2)
[2016-07-19 15:38] LABS: PARTIAL THROMBOPLASTIN RATIO 1.5; PROTHROMBIN TIME (PATIENT) 33.8 SECONDS (9.0-12.0)
--- NOTE | 2016-07-19 16:02 | DIAGNOSTIC IMAGING REPORT ---
CHEST 2 VIEWS ROUTINE CLINICAL HISTORY: Wheezing. Shortness of breath. COMPARISON STUDY: Chest radiograph July 14, 2016. FINDINGS: There is no pneumothorax. Small bilateral pleural effusions are noted. Moderate cardiomegaly is unchanged. Several vascular stents are in place. Left midlung opacity is improved. There are mild bibasilar opacities. There is no evidence for pulmonary edema. There is mild right infrahilar irregular opacity. IMPRESSION: 1. Small bilateral pleural effusions with bibasilar opacities. Left basilar opacity is suggestive of atelectasis. Right infrahilar opacity is indeterminate and could reflect pneumonia or atelectasis. Radiographic follow-up to ensure resolution is recommended. 2. Moderate cardiomegaly without evidence of pulmonary edema. Electronically signed by: Davide Fernandez M.D. 07/19/2016 4:00 PM Dictated Date/Time: 07/19/2016 3:58 PM
[2016-07-19] MEDS ORDERED: ALBUTEROL HFA 8 GM INHALER INH STA (16:57)
[2016-07-19 17:33] VITALS: BP 138/96; PULSE 81; O2SAT 93
== END 2016-07-19 17:36 | disposition home or self-care (01) ==
LOC: C.EDB 13:31 → C.EDA 17:36
DX: J20.9 Acute bronchitis, unspecified (principal); I48.92 Unspecified atrial flutter; I35.0 Nonrheumatic aortic (valve) stenosis; I48.91 Unspecified atrial fibrillation; I12.0 Hypertensive chronic kidney disease with stage 5 chronic kidney disease or end stage renal disease; N18.6 End stage renal disease; E11.9 Type 2 diabetes mellitus without complications; E78.5 Hyperlipidemia, unspecified; N40.0 Benign prostatic hyperplasia without lower urinary tract symptoms; Z98.1 Arthrodesis status; Z98.49 Cataract extraction status, unspecified eye; Z79.82 Long term (current) use of aspirin; Z79.4 Long term (current) use of insulin; Z79.01 Long term (current) use of anticoagulants

== ENCOUNTER 2016-09-06 12:36 | Emergency (ER) | payer MEDICARE ==
[~2016-09-06] VITALS: Ht 172.7 cm; Wt 93.0 kg
[~2016-09-06 12:36] MED LIST changes: -LEVO1TAB34 PO
[2016-09-06 12:38] VITALS: TEMP 36.7; Ht 172.7 cm; Wt 93.0 kg
[2016-09-06] MEDS ORDERED: WARF-280 PO (13:06)
[2016-09-06 13:35] LABS: BASO % 0.3 %; BASO ABS # 0.02 K/uL (0-0.2); COMPLETE YES; EOS % 3.1 %; HEMATOCRIT 39.4 % (42-52); IG% 0.1 %; LYMPH % 18.2 %; LYMPH ABS # 1.25 K/uL (1.2-3.4); MEAN CELL VOLUME 97.8 fL (80-100); MEAN CORPUSCULAR HEMOGLOBIN 32.5 pg (25-34); MEAN CORPUSCULAR HGB CONC 33.2 g/dl (32-36); MEAN PLATELET VOLUME 9.9 fL (7.4-10.4); NEUT % 67.3 %; PLATELET COUNT 245 K/uL (130-400); RED BLOOD COUNT 4.03 M/uL (4.7-6.1); WHITE BLOOD COUNT 6.88 K/uL (4.8-10.8)
--- NOTE | 2016-09-06 14:04 | DIAGNOSTIC IMAGING REPORT ---
LEFT KNEE 3 VIEWS CLINICAL HISTORY: Left knee pain, anterior COMPARISON: None. DISCUSSION: There is extensive chondrocalcinosis. There is a trace joint effusion. No acute fractures are visualized. There are extensive arterial calcifications. IMPRESSION: Extensive chondrocalcinosis. No acute fractures. Electronically signed by: Allan Agosto M.D. 09/06/2016 2:02 PM Dictated Date/Time: 09/06/2016 2:01 PM
[2016-09-06 14:10] LABS: BLOOD UREA NITROGEN 21 mg/dl (7-18); C-REACTIVE PROTEIN 0.87 mg/dl (0-0.29); CALCIUM 9.1 mg/dl (8.5-10.1); CARBON DIOXIDE 33 mmol/L (21-32); CHLORIDE 95 mmol/L (98-107); GLUCOSE 235 mg/dl (70-99); SODIUM 132 mmol/L (136-145)
--- NOTE | 2016-09-06 14:44 | DIAGNOSTIC IMAGING REPORT ---
LEFT LOWER EXTREMITY VENOUS DOPPLER HISTORY: Left knee pain COMPARISON STUDY: None. FINDINGS: There is normal compressibility, flow, and augmentation within the left lower extremity deep venous system. IMPRESSION: No DVT within the left lower extremity. Electronically signed by: Darrin Link M.D. 09/06/2016 2:42 PM Dictated Date/Time: 09/06/2016 2:42 PM
--- NOTE | 2016-09-06 15:24 | EMERGENCY ROOM VISIT NOTE ---
History First contact with patient: 12:56 Chief Complaint: KNEEPAIN Stated Complaint: LEFT KNEE PAIN History of Present Illness The patient is a 86 year old male who presents to the Emergency Room via private vehicle with complaints of "left knee pain". Patient states that 10 days ago he began with cramping in the left knee region, which is experiencing after dialysis. He states that today while getting into his car he twisted the left knee. He states that the knee pain as a 0/10 at rest, but with movement is a 25/10. He points to the anterior left knee as a location of the pain. He notes he is also on blood thinners, with the last INR of 2. He is on this for a leaking heart valve and aortic stenosis. He denies any chest pain, fevers, chills. Review of Systems A complete 10-point Review of Systems was discussed with the patient, with pertinent positives and negatives listed in the History of Present Illness. All remaining Review of Systems questions can be considered negative unless otherwise specified. Past Medical/Surgical History Medical Problems: (1) Afib (2) BPH (benign prostatic hyperplasia) (3) Diabetes mellitus, type II (4) Dyslipidemia (5) ESRD (end stage renal disease) (6) Hypertension (7) Inguinal hernia Surgical Problems: (1) H/O cataract removal with insertion of prosthetic lens (2) S/P lumbar spinal fusion Family History Cancer Diabetes mellitus Heart disease Hypertension Social History Smoking Status: Never Smoker Alcohol Use: none Drug Use: none Marital Status: in relationship Housing Status: lives with significant other Occupation Status: retired Current/Historical Medications Scheduled Aspirin Enteric Coated (Ecotrin Or Generic), 81 MG PO DAILY Atorvastatin (Atorvastatin Calcium), 10 MG PO QPM Calcium Acetate (Phosphate Bin (Phoslo 667 Mg), 667 MG PO TIDM Insulin Isophane (Human) (Humulin N Kwikpen), 15 UNITS SC QAM Insulin Lispro (Human) (Humalog), 4 UNITS SC QDB Insulin Lispro (Human) (Humalog), 4 UNITS SC QDL Insulin Lispro (Human) (Humalog), 4 UNITS SC QDD Warfarin Sodium (Warfarin Sodium), 2.5 MG PO DAILY Allergies Coded Allergies: Hydralazine (Verified Allergy, Unknown, DOESN'T FEEL WELL, 09/06/16) Sulfa Antibiotics (Verified Allergy, Unknown, `, 09/06/16) Benazepril (Verified Adverse Reaction, Unknown, DIZZINESS, 09/06/16) Physical Exam Vital Signs Date Time Temp Pulse Resp B/P Pulse Ox O2 Delivery O2 Flow Rate FiO2 09/06/16 15:34 71 18 136/72 96 09/06/16 14:53 72 18 152/51 97 Room Air 09/06/16 12:38 36.7 82 17 142/57 98 Room Air Physical Exam VITAL SIGNS - Vital signs and nursing notes were reviewed. GENERAL -86-year-old male appearing his stated age who is in no acute distress. Communicates well with provider and answers questions appropriately. SKIN - Without rashes. No petechial rashes. The skin overlying the left knee is not erythematous or excessively warm. LUNGS - Chest wall symmetric without accessory muscle use, intercostals retractions, or central cyanosis. Normal vesicular breath sounds CTA B/L. No wheezes, rales, or rhonchi appreciated. CARDIAC - RRR with S1/S2. No murmur, rubs, or gallops appreciated. EXTREMITIES - No clubbing or peripheral cyanosis. No pretibial edema present. There is slight edema of the anterior left knee. There is no evidence of cellulitis, or infection. There is no valgus or varus laxity of the left knee joint. There is minimal reproducible tenderness with left anterior drawer of the knee. There is full extension and flexion with tenderness upon flexion of the left knee. He is neurovascularly intact in this region. Medical Decision & Procedures ER Provider Diagnostic Interpretation: LEFT KNEE 3 VIEWS CLINICAL HISTORY: Left knee pain, anterior COMPARISON: None. DISCUSSION: There is extensive chondrocalcinosis. There is a trace joint effusion. No acute fractures are visualized. There are extensive arterial calcifications. IMPRESSION: Extensive chondrocalcinosis. No acute fractures. Electronically signed by: Allan Agosto M.D. 09/06/2016 2:02 PM Dictated Date/Time: 09/06/2016 2:01 PM LEFT LOWER EXTREMITY VENOUS DOPPLER HISTORY: Left knee pain COMPARISON STUDY: None. FINDINGS: There is normal compressibility, flow, and augmentation within the left lower extremity deep venous system. IMPRESSION: No DVT within the left lower extremity. Electronically signed by: Darrin Link M.D. 09/06/2016 2:42 PM Dictated Date/Time: 09/06/2016 2:42 PM Laboratory Results 09/06/16 13:23 Red Blood Count 4.03, Mean Corpuscular Volume 97.8, Mean Corpuscular Hemoglobin 32.5, Mean Corpuscular Hemoglobin Concent 33.2, Mean Platelet Volume 9.9, Neutrophils (%) (Auto) 67.3, Lymphocytes (%) (Auto) 18.2, Monocytes (%) (Auto) 11.0, Eosinophils (%) (Auto) 3.1, Basophils (%) (Auto) 0.3, Neutrophils # (Auto ) 4.63, Lymphocytes # (Auto) 1.25, Monocytes # (Auto) 0.76, Eosinophils # (Auto ) 0.21, Basophils # (Auto) 0.02 09/06/16 13:23 09/06/16 14:10 Test 09/06/16 13:23 09/06/16 14:10 White Blood Count 6.88 K/uL (4.8-10.8) Red Blood Count 4.03 M/uL (4.7-6.1) Hemoglobin 13.1 g/dL (14.0-18.0) Hematocrit 39.4 % (42-52) Mean Corpuscular Volume 97.8 fL (80-100) Mean Corpuscular Hemoglobin 32.5 pg (25-34) Mean Corpuscular Hemoglobin Concent 33.2 g/dl (32-36) Platelet Count 245 K/uL (130-400) Mean Platelet Volume 9.9 fL (7.4-10.4) Neutrophils (%) (Auto) 67.3 % Lymphocytes (%) (Auto) 18.2 % Monocytes (%) (Auto) 11.0 % Eosinophils (%) (Auto) 3.1 % Basophils (%) (Auto) 0.3 % Neutrophils # (Auto) 4.63 K/uL (1.4-6.5) Lymphocytes # (Auto) 1.25 K/uL (1.2-3.4) Monocytes # (Auto) 0.76 K/uL (0.11-0.59) Eosinophils # (Auto) 0.21 K/uL (0-0.5) Basophils # (Auto) 0.02 K/uL (0-0.2) RDW Standard Deviation 48.2 fL (36.4-46.3) RDW Coefficient of Variation 13.4 % (11.5-14.5) Immature Granulocyte % (Auto) 0.1 % Immature Granulocyte # (Auto) 0.01 K/uL (0.00-0.02) Erythrocyte Sedimentation Rate 55 mm/hr (0-14) Anion Gap 4.0 mmol/L (3-11) Est Creatinine Clear Calc Drug Dose 21.7 ml/min Estimated GFR () 24.4 Estimated GFR (Non- 21.1 BUN/Creatinine Ratio 8.0 (10-20) Calcium Level 9.1 mg/dl (8.5-10.1) C-Reactive Protein 0.87 mg/dl (0-0.29) Lyme Disease IgG Antibody NEG (NEG) Lyme Disease IgM Antibody NEG (NEG) Medical Decision Patient was seen and evaluated as above. After obtaining a thorough history and physical examination IV access was initiated and a CBC, CRP, ESR and CRP with Lyme screen were obtained. Knee 3 view radiograph as well as lower extremity venous Doppler were also obtained. Patient presents with knee pain without trauma 10 days, followed by trauma today. CBC reveals no evidence of infection, there is hemoglobin of 13.1 which is similar to previous. ESR is 55. Sodium is low at 132, this is similar to previous, chloride and carbon dioxide are also abnormal, BUN/creatinine are abnormal but creatinine appears to be the best at his [place] past 2 years. Random glucose elevated at 235. He is an insulin-dependent diabetic. CRP is elevated at 0.7. Lyme screen is negative. Patient was educated upon these findings. Radiograph of the right knee reveals small effusion, and extensive chondrocalcinosis. There are also arterial calcifications. DVT study was negative. I suspect the patient is experiencing symptoms secondary to the chondrocalcinosis, and potential ligament injury today. I do not believe the crutches are indicated as this would be an increased fall risk. He has a walker and cane at home. He is to rest the leg and follow-up with orthopedics. He was provided the number to call for orthopedics. He was educated upon management today's findings. He was educated upon worrisome symptoms which to return, had questions prior to discharge and was discharged home in good condition. I suspect the ESR and CRP are likely elevated secondary to dialysis, and do not suspect a septic joint. In the evaluation and treatment of this patient, the following differential diagnoses were considered: Patellar Fracture, Tibial Plateau Fracture, Distal Femur Fracture, ACL Injury, PCL Injury, Collateral Ligament Injury, Pes Anserine Bursitis, Maisonneuve Fracture. Impression Primary Impression: Knee pain Additional Impressions: Anemia Chondrocalcinosis Departure Information Dispostion Home / Self-Care Condition GOOD Referrals Karlos Burris M.D. (MEDICAL) (PCP) Lucio Monteiro M.D. Patient Instructions My [facility] Additional Instructions You have been treated in the Emergency Department for Knee Pain. For pain control, you can use the following [id number] medicines (if >12 yo): Acetaminophen/Tylenol. Please take this as directed according to the over-the- counter bottle. If this is a recent injury (<24 hrs), ice can be applied to the area of pain for the first 3 days to help decrease pain and inflammation. Ice massages can be performed by freezing water in a paper cup, peeling back the cup to expose the ice and then massaging over the affected area. You have been provided the number for an Orthopaedic Surgeon. You should call this number as soon as possible to establish a follow-up visit from today's Emergency Department visit. (Dr. Monteiro) Please allow the knee to rest. Please follow-up with her family doctor regarding today's visit. Return to the Emergency Department if your current symptoms worsen despite treatment course outlined above. Please return to emergency department with any new/concerning symptoms. Problem Qualifiers
[2016-09-06 15:25] LABS: LYME DISEASE AB IGM NEG (NEG)
[2016-09-06 15:27] LABS: LYME DISEASE AB IGG NEG (NEG)
[2016-09-06 15:34] VITALS: BP 136/72; PULSE 71; O2SAT 96
--- NOTE | 2016-09-06 15:34 | EMERGENCY ROOM VISIT NOTE ---
ED Visit Note First contact with patient: 12:56 Patient was seen by our PA/BLOOD BANK CREDIT CLERK. I was involved in the patient's care and did evaluate the patient myself. I was involved in the care throughout the ER stay. The patient's presents with left knee pain. Workup suggests arthritis. The patient was reassured and is being discharged to see orthopedics.
== END 2016-09-06 15:34 | disposition home or self-care (01) ==
LOC: C.EDB 12:37 → C.EDD 15:34
DX: M11.261 Other chondrocalcinosis, right knee (principal); M25.562 Pain in left knee; D64.9 Anemia, unspecified; I48.91 Unspecified atrial fibrillation; E11.9 Type 2 diabetes mellitus without complications; E78.5 Hyperlipidemia, unspecified; I12.0 Hypertensive chronic kidney disease with stage 5 chronic kidney disease or end stage renal disease; N18.6 End stage renal disease; Z98.1 Arthrodesis status; Z79.01 Long term (current) use of anticoagulants; Z79.4 Long term (current) use of insulin; Z79.82 Long term (current) use of aspirin; Z79.899 Other long term (current) drug therapy; Z80.9 Family history of malignant neoplasm, unspecified; Z83.3 Family history of diabetes mellitus; Z82.49 Family history of ischemic heart disease and other diseases of the circulatory system